=== PATIENT | female | born 1950 | race Caucasian/White ===

== ENCOUNTER 2022-11-29 17:30 | Emergency (ER) | payer OTHER ==
--- OUTSIDE RECORDS SUMMARY | 2022-11-29 17:33 | XMS REPORT | Continuity of Care Document ---
:1950 Author Organization [facility] t Address [address] [place] [address] [place] [id number] Care Team Providers Name Role Phone Unavailable Unavailable Unavailable Problems This patient has no known problems. Allergies, Adverse Reactions, Alerts This patient has no known allergies or adverse reactions. Medications This patient has no known medications. Procedures This patient has no known procedures. Results This patient has no known results.
--- NOTE | 2022-11-29 19:37 | RAD REPORT ---
EXAM DESCRIPTION: RAD - Chest Single View - 11/29/2022 7:31 pm CLINICAL HISTORY: COUGH Chest pain. COMPARISON: Chest Single View dated 08/21/2015; CHEST PA AND LAT 2 VIEW dated 03/19/2009; CHEST PA AN D LAT 2 VIEW dated 10/30/2001 FINDINGS: Portable technique limits examination quality. The lungs are emphysematous but grossly clear. The heart is moderately enlarged. No displaced fractur es. IMPRESSION: Prominent COPD.
[2022-11-29 19:56] LABS: Protime INR 1.06
[2022-11-29 20:07] LABS: Absolute Lymphocytes (CBC) 2.5 K/uL (0.7-4.9); Hematocrit 39.9 % (36.0-45.0); Lymphocytes % 29.8 % (15.3-44.8); MCV 94.5 fL (80-100); Platelets 246 thou/uL (152-406); RBC Red Blood Cell Count 4.22 M/uL (3.86-4.86)
[2022-11-29 20:09] LABS: Albumin 3.4 g/dL (3.4-5.0); Bilirubin Direct 0.2 mg/dL (0-0.2); Bilirubin Indirect, Calculated 0.6 mg/dL (0.2-0.8); Bilirubin Total 0.8 mg/dL (0.2-1.0); Magnesium 2.3 mg/dL (1.6-2.4); Potassium 3.6 mEq/L (3.5-5.1); Protein, Total 6.3 g/dL (6.4-8.2)
[2022-11-29 21:08] LABS: Specific Gravity 1.014 (1.005-1.030); Urine Bacteria 20-50 /HPF (<20); Urine Bilirubin NEGATIVE (Negative); Urine Blood Negative (Negative); Urine Clarity Extremely Turbid (Clear); Urine Color Light-Orange (Yellow); Urine Crystals Unidentified Moderate /HPF (None Seen); Urine Glucose NEGATIVE (Negative); Urine Mucus Slight /HPF (None Seen); Urine Protein NEGATIVE (Negative); Urine Urobilinogen Normal (Normal); Urine WBC Clump Many /HPF (None Seen)
--- NOTE | 2022-11-29 21:20 | RAD REPORT ---
EXAM DESCRIPTION: CT - CTHCSPWOC - 11/29/2022 9:07 pm CLINICAL HISTORY: Trauma, head and neck injury. off balance;Weakness COMPARISON: No comparisons TECHNIQUE: Axial 5 mm thick images of the head were obtained. Axial 2 mm thick images of the cervical spine were obtained with sagittal and coronal reconstruction images generated and reviewed. All CT scans are performed using dose optimization technique as appropriate and may include automated exposure control or mA/KV adjustment according to patient size. FINDINGS: CT HEAD WITHOUT CONTRAST: No acute hemorrhage, hydrocephalus or extra-axial collection is identified.No areas of brain edema or midline shift. The paranasal sinuses and mastoids are clear.The calvarium is intact. CT CERVICAL SPINE WITHOUT CONTRAST: No fracture or subluxation.Mild cervical degenerative changes.No prevertebral soft tissues swelling i s identified. IMPRESSION: No acute intracranial or cervical spine findings.
[2022-11-29] MEDS ORDERED: CEFTRIAXONE 1000 MG/VIAL ONE (21:49)
[2022-11-29] MEDS ORDERED: NA CHLORIDE 0.9% 500 ML ONE (21:49)
[2022-11-30 02:48] VITALS: TEMP 97.4
[2022-11-30 03:00] VITALS: BP 110/74; O2SAT 98
[2022-11-30] MEDS ORDERED: ACETAMINOPHEN 500 MG TAB ONE (10:08)
[2022-11-30] MEDS ORDERED: NA CHLORIDE 0.9% 500 ML ONE (10:08)
--- NOTE | 2022-11-30 16:28 | EKG ---
Test Date: 2022-11-29 Test Time: 20:00:46 Varnish Filterer: ELSA MEASUREMENT RESULTS: Intervals: Rate: 68 AR: 144 QRSD: 82 QT: 394 QTc: 418 Douglass: P: 81 AR: 144 QRS: 64 T: 57 INTERPRETIVE STATEMENTS: Normal sinus rhythm Normal ECG Compared to ECG 08/21/2015 20:12:48 Sinus tachycardia no longer present Electronically Signed On 11-30-22 16:25:55 CDT by Abelino Alva
--- NOTE | 2022-12-01 08:25 | ER ---
Nurse's Notes [facility] Name: Mar Nuno Age: 72 yrs Sex: Female : 1950 Arrival Date: 11/29/2022 Time: 17:30 Bed 12 Private MD: Diagnosis: UTI/ Urinary tract infection, site not specified;Weakness Presentation: 11/29 17:48 Chief complaint: EMS states: Pt hx of COPD, was recently d/c from hospital w/ ph prescriptions for antibiotics, albuterol and dexamethasone, called EMS because she fells shaky. Visible shaking noted, VSS. Coronavirus screen: Vaccine status: Patient reports receiving the 2nd dose of the covid vaccine. Ebola Screen: No symptoms or risks identified at this time. Initial Sepsis Screen: Does the patient meet any 2 criteria? No. Patient's initial sepsis screen is negative. Does the patient have a suspected source of infection? No. Patient's initial sepsis screen is negative. Risk Assessment: Do you want to hurt yourself or someone else? Patient reports no desire to harm self or others. Onset of symptoms. 17:48 Method Of Arrival: EMS: [facility] 17:48 Acuity: [place] 3 ph Triage Assessment: 18:45 General: Appears in no apparent distress. Behavior is calm, cooperative. Pain: Denies ph pain. Neuro: Level of Consciousness is awake, alert, obeys commands, Oriented to person, place, time, situation. Historical: - Allergies: 19:00 Aspirin; ph 19:00 HISTAMINE H2 INHIBITORS; ph - PMHx: 19:00 Asthma; seasonal allergies; ph - Immunization history:: Adult Immunizations up to date. - Social history:: Smoking status: Patient denies any tobacco usage or history of. Screenin:45 [facility] ED Fall Risk Assessment (Adult) History of falling in the last 3 months, kc6 including since admission No falls in past 3 months (0 pts) Confusion or Disorientation No (0 pts) Intoxicated or Sedated No (0 pts) Impaired Gait No (0 pts) Mobility Assist Device Used No (0 pt) Altered Elimination No (0 pt) Score/Fall Risk Level 0 - 2 = Low Risk. Abuse screen: Denies threats or abuse. Denies injuries from another. Nutritional screening: No deficits noted. Tuberculosis screening: No symptoms or risk factors identified. Assessment: 19:43 General: Appears in no apparent distress. comfortable, Behavior is calm, cooperative, sg5 appropriate for age, Reports fatigue for 1-2 days. Pain: Denies pain. Neuro: Level of Consciousness is awake, alert, obeys commands, Oriented to person, place, time, situation, Appropriate for age Reports weakness Shaking. Cardiovascular: Capillary refill < 3 seconds Patient's skin is warm and dry. Respiratory: Airway is patent Trachea midline Respiratory effort is even, unlabored, Respiratory pattern is regular, symmetrical. GI: No signs and/or symptoms were reported involving the gastrointestinal system. Abdomen is flat, non-distended. : No signs and/or symptoms were reported regarding the genitourinary system. EENT: No signs and/or symptoms were reported regarding the EENT system. Derm: No signs and/or symptoms reported regarding the dermatologic system. Skin is intact, Skin temperature is warm. Musculoskeletal: Reports weakness in Generalized. 23:44 Reassessment: No changes from previously documented assessment. Patient and/or family vc1 updated on plan of care and expected duration. Pain level reassessed. Patient is alert, oriented x 3, equal unlabored respirations, skin warm/dry/pink. Vital Signs: 19:00 BP 127 / 85; Pulse 77; Resp 18; Temp 97.4; Pulse Ox 97% on R/A; ph 19:43 BP 138 / 84 Supine; Pulse 69; Resp 16; Pulse Ox 94% on R/A; sg5 20:00 BP 152 / 81 Sitting; Pulse 70; Resp 18; Pulse Ox 97% on R/A; sg5 20:15 BP 159 / 110 Standing; Pulse 88; Resp 18; Pulse Ox 96% on R/A; sg5 21:49 BP 113 / 71; Pulse 62; Resp 16; Pulse Ox 96% on R/A; sg5 23:25 BP 111 / 64; Pulse 63; Resp 16; Pulse Ox 99% on R/A; sg5 11/30 01:08 BP 110 / 74; Pulse 65; Resp 18; Pulse Ox 98% on R/A; sg5 ED Course: 11/29 17:47 Patient arrived in ED. ph 17:51 Triage completed. ph 18:29 Lindsey Mcadams FNP-C is [facility]. kb 18:29 Ninfa Archer is Attending Physician. kb 18:45 Leigha Rutherford, RN is Primary Nurse. kc6 18:45 Patient has correct armband on for positive identification. Bed in low position. Call kc6 light in reach. Side rails up X2. 18:46 Arm band placed on. kc6 19:00 Report given to LETICIA Butt \T\ LETICIA Cerda. kc6 19:33 Chest Single View XRAY In Process Unspecified. EDMS 19:43 Inserted saline lock: 22 gauge in right antecubital area, using aseptic technique. sg5 ,using aseptic technique. difusex Blood collected. 21:09 CT Head C Spine In Process Unspecified. EDMS 11/30 01:09 Provided Education on: Need for IV. Fluid Treatment. Lab Draw. Antibiotic. . sg5 01:09 No provider procedures requiring assistance completed. IV discontinued. sg5 07:06 PHCP role handed off by Lindsey Mcadams FNP-C iw 07:06 Attending Physician role handed off by Ninfa Acrher iw Administered Medications: 11/29 21:47 Drug: NS 0.9% IV 500 ml Route: IV; Rate: bolus; Site: right antecubital; sg5 21:47 Drug: Rocephin IV 1 grams Route: IV; Rate: calculated rate; Site: right antecubital; sg5 Medication: 19:01 VIS not applicable for this client. ph Outcome: 11/30 00:06 Discharge ordered by . kb 01:09 Discharged to home via wheelchair. sg5 01:09 Condition: good 01:09 Discharge instructions given to patient, Instructed on discharge instructions, follow up and referral plans. 01:10 Patient left the ED. sg5 08:25 Patient left the ED. iw Signatures: Dispatcher [employer] EDMS Lindsey Mcadams, KHALIF DIETARY SUPERVISOR-Terese Sun RN RN iw Beverly Rico RN RN ph Mili, LETICIA Butt RN vc1 Leigha Rutherford, RN RN kc6 Zaida Rabago RN RN sg5 Corrections: (The following items were deleted from the chart) 11/29 20:48 19:43 BP 138 / 84; Pulse 69bpm; Resp 16bpm; Pulse Ox 94% RA; sg5 sg5
--- NOTE | 2022-12-01 08:25 | EDPHYS ---
Physician Documentation [facility] Name: Mar Nuno Age: 72 yrs Sex: Female : 1950 Arrival Date: 11/29/2022 Time: 17:30 Bed 12 Private MD: ROSY Physician HPI: 11/30 00:58 This 72 yrs old Female presents to ER via EMS with complaints of Doesn't Feel Right. kb 00:58 The patient presents with generalized weakness. Onset: The symptoms/episode kb began/occurred last week. Context: occurred at home. Modifying factors: The symptoms are alleviated by nothing, the symptoms are aggravated by nothing. Associated signs and symptoms: Pertinent positives: unsteady. Severity of symptoms: At their worst the symptoms were moderate in the emergency department the symptoms are unchanged. Patient's baseline: Neuro: alert and fully oriented, Motor: no deficits, Speech: normal. The patient has not experienced similar symptoms in the past. The patient has been recently seen by a physician:. 00:59 Patient reports she is always unsteady on her feet but over the last week its been kb worse. States she was recently given steroids, antibiotics and albuterol for COPD and believes that the medications are making her more unsteady. States she gets very anxious that she may fall. Reports she gets around using her walker at home.. Historical: - Allergies: 11/29 19:00 Aspirin; ph 19:00 HISTAMINE H2 INHIBITORS; ph - PMHx: 19:00 Asthma; seasonal allergies; ph - Immunization history:: Adult Immunizations up to date. - Social history:: Smoking status: Patient denies any tobacco usage or history of. ROS: 22:35 Constitutional: Negative for fever, chills, and weight loss. kb 22:35 Neuro: Positive for gait disturbance. 22:35 All other systems are negative. Exam: 22:35 Constitutional: This is a well developed, well nourished patient who is awake, alert, kb and in no acute distress. Head/Face: Normocephalic, atraumatic. ENT: Moist Mucous membranes Cardiovascular: Regular rate and rhythm with a normal S1 and S2. No gallops, murmurs, or rubs. No pulse deficits. Respiratory: Respirations even and unlabored. No increased work of breathing. Talking in full sentences Abdomen/GI: Soft, non-tender. No distention Skin: Warm, dry with normal turgor. Normal color. MS/ Extremity: Pulses equal, no cyanosis. Neurovascular intact. Full, normal range of motion. Neuro: Awake and alert, GCS 15, oriented to person, place, time, and situation. Moves all extremities. 11/30 01:20 ECG was reviewed by the Attending Physician. Vital Signs: 11/29 19:00 BP 127 / 85; Pulse 77; Resp 18; Temp 97.4; Pulse Ox 97% on R/A; ph 19:43 BP 138 / 84 Supine; Pulse 69; Resp 16; Pulse Ox 94% on R/A; sg5 20:00 BP 152 / 81 Sitting; Pulse 70; Resp 18; Pulse Ox 97% on R/A; sg5 20:15 BP 159 / 110 Standing; Pulse 88; Resp 18; Pulse Ox 96% on R/A; sg5 21:49 BP 113 / 71; Pulse 62; Resp 16; Pulse Ox 96% on R/A; sg5 23:25 BP 111 / 64; Pulse 63; Resp 16; Pulse Ox 99% on R/A; sg5 11/30 01:08 BP 110 / 74; Pulse 65; Resp 18; Pulse Ox 98% on R/A; sg5 MDM: 11/29 18:29 Patient medically screened. 11/30 01:00 Differential diagnosis: anxiety, UTI, generalized weakness, dehydration. Data reviewed: vital signs, nurses notes. Consideration of Admission/Observation Escalation of care including admission/observation considered. Admission considered for patient feeling unsteady but patient reports she feels much stronger now and believes she will be able to get around using her walker at home. Patient states she just gets anxious and freezes up.. 01:01 Historians other than the Patient: EMS: [facility]. Counseling: I had a detailed discussion with the patient and/or guardian regarding the historical points, exam findings, and any diagnostic results supporting the discharge/admit diagnosis, lab results, radiology results, the need for outpatient follow up, a family practitioner, to return to the emergency department if symptoms worsen or persist or if there are any questions or concerns that arise at home. 11/29 18:46 Order name: Basic Metabolic Panel; Complete Time: 20:10 kb 11/29 18:46 Order name: CBC with Diff; Complete Time: 20:16 kb 11/29 18:46 Order name: Hepatic Function; Complete Time: 20:10 kb 11/29 18:46 Order name: Magnesium; Complete Time: 20:10 kb 11/29 18:46 Order name: Protime (+inr); Complete Time: 20:01 kb 11/29 18:46 Order name: Ptt, Activated; Complete Time: 20:01 kb 11/29 18:46 Order name: Troponin High Sensitivity; Complete Time: 20:10 kb 11/29 18:46 Order name: Urinalysis w/ reflexes; Complete Time: 21:34 kb 11/29 21:30 Order name: Urine Culture EDMS 11/29 18:46 Order name: CT Head C Spine; Complete Time: 21:34 kb 11/29 18:46 Order name: Chest Single View XRAY; Complete Time: 19:45 kb 11/29 18:46 Order name: EKG; Complete Time: 18:46 kb 11/30 07:07 Order name: Diet Regular; Complete Time: 07:07 iw 11/29 18:46 Order name: Cardiac monitoring; Complete Time: 00:06 kb 11/29 18:46 Order name: EKG - Nurse/Tech; Complete Time: 20:05 kb 11/29 18:46 Order name: IV Saline Lock; Complete Time: 19:43 kb 11/29 18:46 Order name: Labs collected and sent; Complete Time: 20:46 kb 11/29 18:46 Order name: NPO; Complete Time: 18:50 kb 11/29 18:46 Order name: O2 Per Protocol; Complete Time: 18:50 kb 11/29 18:46 Order name: O2 Sat Monitoring; Complete Time: 18:50 kb 11/29 18:46 Order name: Orthostatics; Complete Time: 20:46 kb EC:20 Rate is 68 beats/min. Rhythm is regular. QRS [place] is Normal. [place] interval is normal at kb 144 msec. QRS interval is normal at 82 msec. QT interval is normal at 418 msec. Administered Medications: 11/29 21:47 Drug: NS 0.9% IV 500 ml Route: IV; Rate: bolus; Site: right antecubital; sg5 21:47 Drug: Rocephin IV 1 grams Route: IV; Rate: calculated rate; Site: right antecubital; sg5 Disposition Summary: 11/30/22 00:06 Discharge Ordered Location: Home kb Condition: Stable kb Diagnosis - UTI/ Urinary tract infection, site not specified kb - Weakness kb Followup: kb - With: Emergency Department - When: As needed - Reason: Worsening of condition Followup: kb - With: Private Physician - When: 2 - 3 days - Reason: Recheck today's complaints, Continuance of care, Re-evaluation by your physician Discharge Instructions: - Discharge Summary Sheet kb - Urinary Tract Infection, Adult, [id number] kb - Weakness, [id number] kb Forms: - Medication Reconciliation Form kb - Thank You Letter kb - Antibiotic Education kb - Prescription Opioid Use kb - Patient Portal Instructions kb - Leadership Thank You Letter kb Prescriptions: - cefpodoxime 100 mg Oral Tablet - take 1 tablet by ORAL route every 12 hours for 10 days take with food; 20 kb tablet; Refills: 0, Product Selection Permitted Signatures: Dispatcher [employer] EDOH Lindsey Mcadams, KHALIF WEINSTEIN-Beverly Valenzuela, RN RN Zaida Rabago RN RN sg5 Corrections: (The following items were deleted from the chart) 11/30 00:06 11/29 22:35 Misc. Order ordered. kb vc1
== END 2022-11-30 08:25 | disposition home or self-care (01) ==
LOC: ER 17:30
DX: N39.0 Urinary tract infection, site not specified (principal); Z88.6 Allergy status to analgesic agent; Z88.8 Allergy status to other drugs, medicaments and biological substances
CPT/HCPCS: 93005; 87088; 85025; 81001; 87086; 80048; 36415; 83735; 85610; 80076; 85730; 84484; 70450; 72125; 71045; 96374; 99284; J7040 ×2; J0696

== ENCOUNTER 2022-11-30 09:35 | Inpatient (IN) | payer OTHER ==
--- OUTSIDE RECORDS SUMMARY | 2022-11-30 09:37 | XMS REPORT | Continuity of Care Document ---
:1950 Author Organization [facility] t Address [address] [place] [id number] Care Team Providers Name Role Phone Unavailable Unavailable Unavailable Problems This patient has no known problems. Allergies, Adverse Reactions, Alerts This patient has no known allergies or adverse reactions. Medications This patient has no known medications. Procedures This patient has no known procedures. Results This patient has no known results.
[2022-11-30 10:20] LABS: Absolute Lymphocytes (CBC) 1.8 K/uL (0.7-4.9); Hematocrit 40.9 % (36.0-45.0); Lymphocytes % 19.7 % (15.3-44.8); MCV 95.1 fL (80-100); MPV 7.9 fL (7.6-11.3); Platelets 237 thou/uL (152-406)
[2022-11-30 10:48] LABS: Magnesium 2.1 mg/dL (1.6-2.4); Potassium 3.7 mEq/L (3.5-5.1); Troponin High Sensitivity 12.3 pg/mL (<58.9)
--- NOTE | 2022-11-30 13:21 | ER ---
Nurse's Notes [facility] Name: Mar Nuno Age: 72 yrs Sex: Female : 1950 Arrival Date: 11/30/2022 Time: 09:35 Bed 19 Private MD: Diagnosis: Weakness Presentation: 11/30 09:51 Chief complaint: EMS states: they were toned out for a life assist back into pts [place] residence this morning. pt lives alone, and is reported to have multiple cats in the home. pt was here last night and d/c home with a diagnosis of a UTI. pt has continued generalized weakness this morning. APS being contacted per EMS. Coronavirus screen: At this time, the client does not indicate any symptoms associated with coronavirus-19. Ebola Screen: No symptoms or risks identified at this time. Initial Sepsis Screen: Does the patient meet any 2 criteria? No. Patient's initial sepsis screen is negative. Does the patient have a suspected source of infection? No. Patient's initial sepsis screen is negative. Risk Assessment: Do you want to hurt yourself or someone else? Patient reports no desire to harm self or others. Onset of symptoms was November 30, 2022. 09:51 Method Of Arrival: EMS: [facility] kc6 09:51 Acuity: [place] 3 kc6 Triage Assessment: 09:53 General: Appears in no apparent distress. comfortable, Behavior is calm, cooperative, kc6 appropriate for age. Pain: Denies pain. EENT: No signs and/or symptoms were reported regarding the EENT system. Neuro: Level of Consciousness is awake, alert, obeys commands, Oriented to person, place, time, situation, Appropriate for age Reports weakness. Cardiovascular: Capillary refill < 3 seconds. Respiratory: Airway is patent Trachea midline Respiratory effort is even, unlabored, Respiratory pattern is regular, symmetrical. GI: No signs and/or symptoms were reported involving the gastrointestinal system. : No signs and/or symptoms were reported regarding the genitourinary system. Derm: No signs and/or symptoms reported regarding the dermatologic system. Skin is intact, is healthy with good turgor, Skin is pink, warm \T\ dry. Musculoskeletal: No signs and/or symptoms reported regarding the musculoskeletal system. Circulation, motion, and sensation intact. Capillary refill < 3 seconds, Range of motion: intact in all extremities. Historical: - Allergies: 09:53 Aspirin; kc6 09:53 HISTAMINE H2 INHIBITORS; kc6 - PMHx: 09:53 Asthma; seasonal allergies; kc6 10:27 COPD; kc6 - PSHx: 09:53 None; kc6 - Immunization history:: Client reports having NOT received the Covid vaccine. Flu vaccine is not up to date. - Social history:: Smoking status: Patient denies any tobacco usage or history of. Screenin:54 [facility] ED Fall Risk Assessment (Adult) History of falling in the last 3 months, kc6 including since admission Yes- physiologic fall (2 pts) Confusion or Disorientation No (0 pts) Intoxicated or Sedated No (0 pts) Impaired Gait Yes (1 pt) Mobility Assist Device Used Yes (1 pt) Altered Elimination No (0 pt) Score/Fall Risk Level 3 or more points = High Risk. Abuse screen: Denies threats or abuse. Denies injuries from another. Nutritional screening: No deficits noted. Tuberculosis screening: No symptoms or risk factors identified. Assessment: 09:55 Reassessment: pt SPO2 dropped to 85% on RA. Placed pt on 1 l/min via nasal cannula. Pt mb9 SPO2 now 95%. ERP notified. 10:55 Reassessment: Patient appears in no apparent distress at this time. No changes from kc6 previously documented assessment. Patient and/or family updated on plan of care and expected duration. Pain level reassessed. Patient is alert, oriented x 3, equal unlabored respirations, skin warm/dry/pink. 11:55 Reassessment: Patient appears in no apparent distress at this time. No changes from kc6 previously documented assessment. Patient and/or family updated on plan of care and expected duration. Pain level reassessed. Patient is alert, oriented x 3, equal unlabored respirations, skin warm/dry/pink. 12:55 Reassessment: Patient appears in no apparent distress at this time. No changes from kc6 previously documented assessment. Patient and/or family updated on plan of care and expected duration. Pain level reassessed. Patient is alert, oriented x 3, equal unlabored respirations, skin warm/dry/pink. 13:55 Reassessment: Patient appears in no apparent distress at this time. No changes from kc6 previously documented assessment. Patient and/or family updated on plan of care and expected duration. Pain level reassessed. Patient is alert, oriented x 3, equal unlabored respirations, skin warm/dry/pink. 14:55 Reassessment: Patient appears in no apparent distress at this time. No changes from kc6 previously documented assessment. Patient and/or family updated on plan of care and expected duration. Pain level reassessed. Patient is alert, oriented x 3, equal unlabored respirations, skin warm/dry/pink. 15:14 Reassessment: attempted to call patient friend Dragan [phone] to leave him a kc6 message for the pt. no answer at this time, left voicemail. 18:18 Reassessment: attempted to call report to 2nd floor. nurse Lamar is in a pt room and kc6 will call me back in 10min. Vital Signs: 09:51 BP 131 / 69; Pulse 66; Resp 18 S; Temp 97.8(O); Pulse Ox 97% on R/A; Weight 43.09 kg kc6 (R); Height 5 ft. 3 in. (R); Pain 0/10; 11:30 BP 117 / 69; Pulse 60; Resp 16 S; Pulse Ox 100% on 2 lpm NC; kc6 12:25 BP 133 / 71; Pulse 77; Resp 18 S; Pulse Ox 98% on R/A; kc6 13:36 BP 113 / 72; Pulse 65; Resp 16 S; Pulse Ox 95% on R/A; kc6 15:06 Pulse 59; Resp 17 S; Pulse Ox 100% on R/A; kc6 09:51 Body Mass Index 16.83 (43.09 kg, 160.02 cm) kc6 09:51 Pain Scale: Adult kc6 ED Course: 09:45 Patient arrived in ED. kc6 09:47 Fareed Regalado PA is PHCP. cp 09:47 Deacon Mckinney DO is Attending Physician. cp 09:53 Triage completed. kc6 09:53 Arm band placed on. kc6 09:55 Patient has correct armband on for positive identification. Placed in gown. Bed in low kc6 position. Call light in reach. Side rails up X2. 13:19 Skyler Olivarez MD is Hospitalizing Provider. cp 13:36 Urinalysis w/ reflexes Sent. kc6 13:38 CT Chest, Abdomen, Pelvis - W/Contrast In Process Unspecified. EDMS 13:57 Leigha Rutherford, RN is Primary Nurse. kc6 14:43 Bradford cath inserted, using sterile technique, 16 Fr., by ED staff, balloon inflated, to kc6 gravity drainage, clamped. returned rodríguez urine. Patient tolerated well. 18:51 No provider procedures requiring assistance completed. Patient admitted, IV remains in kc place. Administered Medications: 10:00 Drug: Acetaminophen PO 500 mg Route: PO; kc6 11:32 Follow up: Response: No adverse reaction; Pain is decreased kc6 10:14 Drug: NS 0.9% IV 500 ml Route: IV; Rate: 125 ml/hr; Site: left forearm; kc6 15:55 Follow up: Response: No adverse reaction; IV Status: Completed infusion; IV Intake: kc6 500ml Medication: 18:51 VIS not applicable for this client. kc6 Intake: 15:55 IV: 500ml; Total: 500ml. [facility] Outcome: 13:20 Decision to Hospitalize by Provider. cp 18:51 Admitted to Med/surg accompanied by tech, via stretcher, with chart, Report called to caitlin Newton RN 18:51 Condition: stable 18:51 Instructed on the need for admit. 18:51 Patient left the ED. [facility] Signatures: Dispatcher [employer] EDAZ Fareed Regalado PA PA cp Leigha Rutherford, RN RN stella Zoe Carranza RN RN mb9 Corrections: (The following items were deleted from the chart) 10:27 09:51 Chief complaint: EMS states: they were toned out for a life assist back into pts [facility] residence this morning. pt lives alone, and is reported to have multiple cats in the home. pt was here last night and d/c home with a diagnosis with a UTI. pt has continued generalized weakness this morning. APS being contacted per EMS. kc6 10:28 10:27 PMHx: Chronic obstructive lung disease; [place] [id number]
--- NOTE | 2022-11-30 13:21 | EDPHYS ---
Physician Documentation [facility] Name: Mar Nuno Age: 72 yrs Sex: Female : 1950 Arrival Date: 11/30/2022 Time: 09:35 Bed 19 Private MD: ED Physician Deacon Mckinney HPI: 11/30 10:00 This 72 yrs old Female presents to ER via EMS with complaints of General Weakness. cp 10:00 Patient is a 72-year-old female who returns to the emergency department after recent cp discharge this morning for general weakness and urinary tract infection. EMS was called to the patient's home for lift assist and observed that patient lives alone and was unable to get back into her home safely. Patient continues to complain of general weakness and has reported several falls here recently. Patient reports she normally uses a walker to get around in her home and as of late has had difficulty. Historical: - Allergies: 09:53 Aspirin; kc6 09:53 HISTAMINE H2 INHIBITORS; kc6 - PMHx: 09:53 Asthma; seasonal allergies; kc6 10:27 COPD; kc6 - PSHx: 09:53 None; kc6 - Immunization history:: Client reports having NOT received the Covid vaccine. Flu vaccine is not up to date. - Social history:: Smoking status: Patient denies any tobacco usage or history of. ROS: 10:05 Constitutional: Positive for poor PO intake, Negative for fever. cp 10:05 Eyes: Negative for injury, pain, redness, and discharge. cp 10:05 ENT: Negative for drainage from ear(s), ear pain, sore throat, difficulty swallowing, difficulty handling secretions. 10:05 Cardiovascular: Negative for chest pain. 10:05 Respiratory: Negative for cough, shortness of breath, wheezing. 10:05 Abdomen/GI: Negative for abdominal pain, vomiting, diarrhea, constipation. 10:05 Neuro: Positive for weakness, Negative for altered mental status, dizziness, headache, loss of consciousness, syncope. 10:05 All other systems are negative. Exam: 10:10 Constitutional: The patient appears in no acute distress, alert, awake, cp non-diaphoretic, non-toxic, well developed, frail. 10:10 Head/Face: Normocephalic, atraumatic. cp 10:10 Eyes: Periorbital structures: appear normal, Pupils: equal, round, and reactive to light and accomodation, Extraocular movements: intact throughout, Sclera: no appreciated abnormality, Lids and lashes: appear normal, bilaterally. 10:10 ENT: External ear(s): are unremarkable, Nose: is normal, Mouth: Lips: moist, Oral mucosa: pink and intact, moist, Posterior pharynx: Airway: no evidence of obstruction, patent, Voice: is normal. 10:10 Neck: ROM/movement: limited range of motion, that is mild, in any direction. 10:10 Chest/axilla: Inspection: normal, Palpation: is normal, no crepitus, no tenderness. 10:10 Cardiovascular: Rate: normal, Rhythm: regular, Edema: is not appreciated, JVD: is not appreciated. 10:10 Respiratory: the patient does not display signs of respiratory distress, Respirations: normal, no use of accessory muscles, no retractions, labored breathing, is not present, Breath sounds: are clear throughout, no decreased breath sounds, no stridor, no wheezing. 10:10 Abdomen/GI: Inspection: abdomen appears normal, Bowel sounds: active, all quadrants, Palpation: abdomen is soft and non-tender, in all quadrants. 10:10 Back: CVA tenderness, is absent. 10:10 Skin: cellulitis, is not appreciated, no rash present. 10:10 Neuro: Orientation: to person, place \T\ time. Mentation: able to follow commands, Motor: moves all fours, general weakness w/o focal deficit, Sensation: is normal. 10:12 ECG was reviewed by the Attending Physician. cp Vital Signs: 09:51 BP 131 / 69; Pulse 66; Resp 18 S; Temp 97.8(O); Pulse Ox 97% on R/A; Weight 43.09 kg kc6 (R); Height 5 ft. 3 in. (R); Pain 0/10; 11:30 BP 117 / 69; Pulse 60; Resp 16 S; Pulse Ox 100% on 2 lpm NC; kc6 12:25 BP 133 / 71; Pulse 77; Resp 18 S; Pulse Ox 98% on R/A; kc6 13:36 BP 113 / 72; Pulse 65; Resp 16 S; Pulse Ox 95% on R/A; kc6 15:06 Pulse 59; Resp 17 S; Pulse Ox 100% on R/A; kc6 09:51 Body Mass Index 16.83 (43.09 kg, 160.02 cm) 6 09:51 Pain Scale: Adult kc6 MDM: 09:48 Patient medically screened. cp 10:00 Differential diagnosis: viral Infection, bacterial infection, bronchitis, pneumonia cp UTI, sepsis. 13:25 Data reviewed: vital signs, nurses notes, lab test result(s), EKG, radiologic studies, cp plain films. 13:25 Management of patient was discussed with the following: Primary Care Provider: DR Sher shultz who requests cath urine and CT of chest/abdomen/pelvis. Admit to his services after discussion. Counseling: I had a detailed discussion with the patient and/or guardian regarding the historical points, exam findings, and any diagnostic results supporting the discharge/admit diagnosis, lab results, radiology results, the need for further work-up and treatment in the hospital. Response to treatment: the patient's symptoms have mildly improved after treatment. 11/30 09:49 Order name: Basic Metabolic Panel; Complete Time: 10:49 cp 11/30 09:49 Order name: CBC with Diff; Complete Time: 10:49 cp 11/30 09:49 Order name: Magnesium; Complete Time: 10:49 cp 11/30 09:49 Order name: Troponin HS; Complete Time: 10:49 cp 11/30 13:19 Order name: Urinalysis w/ reflexes; Complete Time: 16:48 cp 11/30 17:54 Order name: Basic Metabolic Panel [facility] 11/30 17:54 Order name: Basic Metabolic Panel [facility] 11/30 17:54 Order name: CBC with Automated Diff [facility] 11/30 17:54 Order name: CBC with Automated Diff [facility] 11/30 13:19 Order name: CT Chest, Abdomen, Pelvis - W/Contrast; Complete Time: 16:48 cp 11/30 09:45 Order name: Social Service Consult [facility] 11/30 09:49 Order name: EKG; Complete Time: 09:50 cp 11/30 10:15 Order name: Diet Regular; Complete Time: 10:15 [facility] 11/30 10:57 Order name: Physical Therapy Consult [facility] 11/30 15:54 Order name: Diet Regular; Complete Time: 15:54 [facility] 11/30 09:49 Order name: Cardiac monitoring; Complete Time: 10:11 cp 11/30 09:49 Order name: EKG - Nurse/Tech; Complete Time: 10:10 cp 11/30 09:49 Order name: IV Saline Lock; Complete Time: 10:11 cp 11/30 09:49 Order name: Labs collected and sent; Complete Time: 10:11 cp 11/30 09:49 Order name: O2 Per Protocol; Complete Time: 09:55 cp 11/30 09:49 Order name: O2 Sat Monitoring; Complete Time: 09:55 cp 11/30 13:19 Order name: Cath: per DR Olivarez; Complete Time: 14:42 cp EC:12 Rate is 64 beats/min. Rhythm is regular. [place] interval is normal. QRS interval is normal. cp QT interval is normal. T waves are Inverted in lead aVR. Interpreted by me. Reviewed by me. Administered Medications: 10:00 Drug: Acetaminophen PO 500 mg Route: PO; kc6 11:32 Follow up: Response: No adverse reaction; Pain is decreased kc6 10:14 Drug: NS 0.9% IV 500 ml Route: IV; Rate: 125 ml/hr; Site: left forearm; kc6 15:55 Follow up: Response: No adverse reaction; IV Status: Completed infusion; IV Intake: kc6 500ml Disposition: 12/01 11:28 Co-signature as Attending Physician, Deacon CHRISTIE was immediately available on-site ms3 in the Emergency Department for consultation in the care of the patient. Disposition Summary: 11/30/22 13:20 Hospitalization Ordered Hospitalization Status: Inpatient Admission cp Provider: Skyler Olivarez cp [facility] cp Condition: Stable cp Problem: new cp Symptoms: have improved cp Bed/Room Type: Standard cp Room Assignment: 224(11/30/22 18:03) bd Diagnosis - Weakness cp Forms: - Medication Reconciliation Form cp - SBAR form cp - Leadership Thank You Letter cp Signatures: Dispatcher [employer] Yolanda Smith Corey, PA PA cp Sims, Marcus, DO DO ms3 Leigha Rutherford RN RN kc6 Corrections: (The following items were deleted from the chart) 11/30 10:28 10:27 PMHx: Chronic obstructive lung disease; kc6 kc6 18:03 13:20 cp bd
--- NOTE | 2022-11-30 13:46 | RAD REPORT ---
EXAM DESCRIPTION: CT - Chest Abdomen Pelvis W Cont - 11/30/2022 1:36 pm CLINICAL HISTORY: Chest and abdomen pain. wt loss COMPARISON: Head C Spine Mpr Wo Con dated 11/29/2022 TECHNIQUE: Approximately 100 mL nonionic IV contrast was administered to the patient. All CT scans are performed using dose optimization technique as appropriate and may include automated exposure control or mA/KV adjustment according to patient size. FINDINGS: The lungs are mildly emphysematous with linear atelectasis in the left lung base.No pleura l or pericardial effusion.No intrathoracic adenopathy.Mildly distended esophagus filled with food mat erial. The liver, spleen, pancreas, adrenal glands are within normal limits. Small calcification inferior po le right kidney compatible with nonobstructing renal calculus. Left kidney contains a benign cyst. No bowel obstruction, free air, free fluid or abscess. There is a large amount of stool in the colon. Appendix is not well visualized. No pathologic lymphadenopathy in the abdomen or pelvis. Mild lumbar degenerative changes. IMPRESSION: No acute abnormality is discerned.
[2022-11-30 13:52] LABS: Specific Gravity 1.014 (1.005-1.030); Urine Bacteria None Seen /HPF (<20); Urine Bilirubin NEGATIVE (Negative); Urine Blood Negative (Negative); Urine Clarity Extremely Turbid (Clear); Urine Color Light-Orange (Yellow); Urine Glucose NEGATIVE (Negative); Urine Protein TRACE (Negative); Urine RBC None Seen /HPF (None Seen); Urine Urobilinogen Normal (Normal); Urine pH 7.5 (5.0-7.0)
--- NOTE | 2022-11-30 16:26 | EKG ---
Test Date: 2022-11-30 Test Time: 10:06:51 Commercial Baking Teacher: RAMAN MEASUREMENT RESULTS: Intervals: Rate: 64 MI: 142 QRSD: 82 QT: 410 QTc: 422 [place]: P: 70 MI: 142 QRS: 65 T: 46 INTERPRETIVE STATEMENTS: Normal sinus rhythm with sinus arrhythmia Normal ECG Compared to ECG 11/29/2022 20:00:46 No significant changes Electronically Signed On 11-30-22 16:25:05 CDT by Abelino Alva
[2022-11-30] MEDS ORDERED: ONDANSETRON 4 MG/2 ML VIAL IV PRN (17:51)
[2022-11-30] MEDS: NA CHLORIDE 0.9% 1,000 ML IV SCH (18:47)
[2022-11-30 19:42] VITALS: BMI 16.8
--- NOTE | 2022-11-30 22:24 | P.HP ---
Patient History Date of Service: 11/30/22 Reason for admission: WEAKNESS, NOT ABLE TO WALK History of Present Illness: ETHAN IS A PATIENT WITH COPD WHO TAKES CARE OF 21 CATS AND USES HER MONEY TO FEED THEM. SHE HAS LOST A LOT OF WEIGHT AND WHEN I ASKED SHE SAYS MONEY IS STRAINED AND SHE IS LOOKING FOR A JOB. SHE HAS BEEN TOLD THAT SHE NEEDS TO GET RIDS OF CATS SO SHE CAN AFFORD FOOD AND EXPENSES FOR HERSELF. SHE LOVES CATS TOO MUCH TO DO SO. SHE SAYS WITH ACUTE ILLNESS SHE GETS WEAK AND SHE CAN'T WALK. THIS HAS HAPPENED BEFORE. SHE CAN'T GET OUT OF BED AND WALK ANY LONGER. Allergies aspirin Allergy (Mild, Verified 08/21/15 22:34) Hives Histamine H2 Inhibitors Allergy (Mild, Verified 08/21/15 22:34) Hives Home medications list reviewed: Yes Home Medications: Montelukast Sodium [Singulair] 10 mg PO DAILY 08/21/15 Budesonide/Glycopyr/Formoterol [Breztri Aerosphere Inhaler] 2 aero IN BID 11/30/22 - Past Medical/Surgical History Has patient received pneumonia vaccine in the past: No Diabetic: No -: Pneumonia -: Asthma -: Hysterectomy - Social History Smoking Status: Never smoker Alcohol use: Yes CD- Drugs: No Caffeine use: Yes Review of Systems 10-point ROS is otherwise unremarkable General: Weakness Physical Examination - Vital Signs Temperature: 97.6 F Blood Pressure: 106/64 Pulse: 82 Respirations: 17 Pulse Ox (%): 95 - Physical Exam General: Oriented x3, Cachectic, Mild distress HEENT: Atraumatic, PERRLA, Mucous membr. moist/pink, EOMI, Sclerae nonicteric Neck: Supple, 2+ carotid pulse no bruit, No LAD, Without JVD or thyroid abnormality Respiratory: Clear to auscultation bilaterally, Normal air movement Cardiovascular: Regular rate/rhythm, Normal S1 S2 Gastrointestinal: Normal bowel sounds, No tenderness Musculoskeletal: No tenderness Integumentary: No rashes Neurological: Abnormal strength (3-4/5 IN LEGS. FLACCID.) Lymphatics: No axilla or inguinal lymphadenopathy - Studies Laboratory Data (last 24 hrs) 11/30/22 11/30/22 10:06 10:06 WBC 9.40 Hgb 13.5 Hct 40.9 Plt Count 237 Sodium 143 Potassium 3.7 BUN 12 Creatinine 0.60 Glucose 97 Magnesium 2.1 Assessment and Plan - Problems (Diagnosis) (1) General weakness Current Visit: Yes Status: Acute Plan: CHECK B12 TSH SED RATE, CRP RULE OUT PMR. CONSULT DR. SHAVER RULE OUT GBS LIKE SYNDROME ORDER PT. ST CATH URINE IS OKAY AGAIN WHEREAS LASTNIGHT URNIE SAMPLE WAS NOT COLLECTED PROPERLY. - Advance Directives Does patient have a Living Will: No Does patient have a Durable POA for Healthcare: No
[2022-11-30 23:53] LABS: C-Reactive Protein < 2.90 mg/L (<3.00); Ferritin 63.2 ng/mL (8-388)
[2022-12-01 03:42] LABS: Absolute Lymphocytes (CBC) 2.1 K/uL (0.7-4.9); Hematocrit 36.3 % (36.0-45.0); Lymphocytes % 25.4 % (15.3-44.8); MCV 94.7 fL (80-100); MPV 8.4 fL (7.6-11.3); Platelets 213 thou/uL (152-406); RBC Red Blood Cell Count 3.83 M/uL (3.86-4.86)
[2022-12-01 03:53] LABS: Potassium 3.9 mEq/L (3.5-5.1)
[2022-12-01] MEDS: MONTELUKAST 10 MG TAB PO SCH ×2 (07:50→07:52)
[2022-12-01] MEDS: NA CHLORIDE 0.9% 1,000 ML IV SCH ×2 (07:50→20:15)
[2022-12-01] MEDS: BUDESONIDE IH SCH ×2 (07:52→20:15)
[2022-12-01] MEDS: GLYCOPYR IH SCH ×2 (07:52→20:15)
[2022-12-01] MEDS: FORMOTEROL IH SCH ×2 (07:52→20:15)
[2022-12-01] MEDS: ENSURE ENLIVE 237 ML CAN PO SCH ×2 (14:03→20:16)
--- NOTE | 2022-12-01 17:44 | P.PN ---
Subjective Date of Service: 12/01/22 Chief Complaint: WEAKNESS, NOT ABLE TO WALK Subjective: Improving DID NOT DO MUCH PT YET. SHE MAY GO TO [place] BUT THERE IS NO QUALIFYING DIAGNOSIS. Physical Examination - Vital Signs Temperature: 99.5 F Blood Pressure: 127/67 Pulse: 79 Respirations: 15 Pulse Ox (%): 95 - Physical Exam General: Oriented x3, Mild distress HEENT: Atraumatic, PERRLA, EOMI Neck: Supple, JVD not distended Respiratory: Clear to auscultation bilaterally, Normal air movement Cardiovascular: Regular rate/rhythm, Normal S1 S2 Gastrointestinal: Normal bowel sounds, No tenderness Musculoskeletal: No tenderness Integumentary: No rashes Neurological: Normal speech, Normal tone, Normal affect Lymphatics: No axilla or inguinal lymphadenopathy - Studies Medications List Reviewed: Yes Assessment And Plan - Current Problems (Diagnosis) (1) General weakness Current Visit: Yes Status: Acute Plan: CHECK B12 TSH SED RATE, CRP RULE OUT PMR. ALL ABOVE NEG. SEE NEURO UA NEG DONE PROPERLY. FIRST SAMPLE WAS FROM [facility]ED[facility]AN AND FALSE POSITIVE. WILL FU WITH ANGIE. HER WEAKNESS IS FROM NOT EATING PROPERLY. SHE FEEDS 21 CATS AND ALWAYS COMPLAINS THAT SHE DOES NOT HAVE MONEY FOR HER OWN FOOD.
[2022-12-02] MEDS: BUDESONIDE IH SCH ×2 (08:24→21:00)
[2022-12-02] MEDS: ENSURE ENLIVE 237 ML CAN PO SCH ×3 (08:24→22:59)
[2022-12-02] MEDS: FORMOTEROL IH SCH ×2 (08:24→21:00)
[2022-12-02] MEDS: GLYCOPYR IH SCH ×2 (08:24→21:00)
[2022-12-02] MEDS: NA CHLORIDE 0.9% 1,000 ML IV SCH (10:16)
--- NOTE | 2022-12-02 11:53 | P.PN ---
Subjective Date of Service: 12/02/22 Chief Complaint: GEN WEAKNESS Subjective: Improving DID NOT DO MUCH PT YET. [facility] BUT [facility] IS NO QUALIFYING DIAGNOSIS. SHE DID NOT DO PT YESTERDAY. SHE WALKED ABOUT 170 FEET DAY BEFORE SHE HAS CUMMINGS FROM ER AND I WILL HAVE IT REMOVED. SHE GOT RID OF HER 21 CATS AND SHE WILL NOW HAVE FOOD TO EAT HOUSE IS BEING CLEANED UP AND SHE IS STABLE TO GO HOME BUT SHE WANTS TO WAIT ONE MORE DAY HERE. Review of Systems 10-point ROS is otherwise unremarkable General: Weakness Physical Examination - Vital Signs Temperature: 99.0 F Blood Pressure: 120/79 Pulse: 93 Respirations: 18 Pulse Ox (%): 98 - Physical Exam General: Alert, In no apparent distress HEENT: Atraumatic, PERRLA, EOMI Neck: Supple, JVD not distended Respiratory: Clear to auscultation bilaterally, Normal air movement Cardiovascular: Regular rate/rhythm, Normal S1 S2 Gastrointestinal: Normal bowel sounds, No tenderness Musculoskeletal: No tenderness Integumentary: No rashes Neurological: Normal speech, Normal tone, Normal affect Lymphatics: No axilla or inguinal lymphadenopathy - Studies Medications List Reviewed: Yes Assessment And Plan - Current Problems (Diagnosis) (1) General weakness Current Visit: Yes Status: Acute Plan: CHECK B12 TSH SED RATE, CRP RULE OUT PMR. ALL ABOVE NEG. SHE HAS GOT RID OF CATS NOW AND THAT IS GOOD FOR HER HEALTH. SHE LISTENED TO WHAT I ADVISED SHE ALWAYS COMPLAINED OF NOT HAVING MONEY FOR FOOD BUT SHE WAS SPENDING ON CATS. SHE WILL GO TO FRIEND FOR A DAY AND THEN TO HER HOME WITH HOME HEALTH.
[2022-12-02 12:21] LABS: Specific Gravity 1.011 (1.005-1.030); Urine Bacteria None Seen /HPF (<20); Urine Bilirubin NEGATIVE (Negative); Urine Blood Trace (Negative); Urine Clarity Clear (Clear); Urine Color Light-Yellow (Yellow); Urine Glucose NEGATIVE (Negative); Urine Mucus Slight /HPF (None Seen); Urine Protein NEGATIVE (Negative); Urine Urobilinogen Normal (Normal); Urine pH 6.5 (5.0-7.0)
[2022-12-02] MEDS ORDERED: NA CHLORIDE 0.9% 1,000 ML IV SCH (21:24)
[2022-12-03] MEDS: MONTELUKAST 10 MG TAB PO SCH (08:18)
[2022-12-03] MEDS: GLYCOPYR IH SCH (08:20)
[2022-12-03] MEDS: FORMOTEROL IH SCH (08:20)
[2022-12-03] MEDS: BUDESONIDE IH SCH (08:20)
[2022-12-03] MEDS: ENSURE ENLIVE 237 ML CAN PO SCH (08:20)
[2022-12-03 08:30] VITALS: O2SAT 96
[2022-12-03 08:55] VITALS: BP 102/58; TEMP 98.3
--- NOTE | 2022-12-03 21:38 | P.DS ---
Admission Date: 11/30/22 Discharge Date: 12/03/22 Disposition: DC HOME/HOME HEALTH CARE Discharge Condition: FAIR Reason for Admission: GEN WEAKNESS - Problems (1) General weakness Status: Acute Brief History of Present Illness: ETHAN IS A PATIENT WITH COPD WHO TAKES CARE OF 21 CATS AND USES HER MONEY TO FEED THEM. SHE HAS LOST A LOT OF WEIGHT AND WHEN I ASKED SHE SAYS MONEY IS STRAINED AND SHE IS LOOKING FOR A JOB. SHE HAS BEEN TOLD THAT SHE NEEDS TO GET RIDS OF CATS SO SHE CAN AFFORD FOOD AND EXPENSES FOR HERSELF. SHE LOVES CATS TOO MUCH TO DO SO. SHE SAYS WITH ACUTE ILLNESS SHE GETS WEAK AND SHE CAN'T WALK. THIS HAS HAPPENED BEFORE. SHE CAN'T GET OUT OF BED AND WALK ANY LONGER. Hospital Course: ANGELA COMES IN WEAK, NOT ABLE TO GET OUT OF BED. SHE HAS LOST ABOUT 30 LBS LATELY. SHE HAD 21 CATS AND SHE HAD NO MONEY LEFTOVER AFTER TAKING CARE OF THEM. THIS IS HOW SHE LOST WEIGHT. SHE IS CACHECTIC BUT AFTER FEEDING FOR COUPLE OF DAYS SHE IS ABLE TO WALK AROUND NURSES STATION WITH WALKER. SHE HAS NO UTI. SHE IS STABLE FOR DC WITH PT AND HH. Vital Signs/Physical Exam: Temp Pulse Resp BP Pulse Ox 98.3 F 72 16 102/58 L 97 12/03/22 08:00 12/03/22 08:00 12/03/22 08:00 12/03/22 08:00 12/03/22 08:00 Laboratory Data at Discharge: WBC 8.30 thou/uL (4.3-10.9) 12/01/22 02:12 Hgb 12.4 g/dL (12.0-15.0) D 12/01/22 02:12 Hct 36.3 % (36.0-45.0) 12/01/22 02:12 Plt Count 213 thou/uL (152-406) 12/01/22 02:12 Sodium 143 mEq/L (136-145) 12/01/22 02:12 Potassium 3.9 mEq/L (3.5-5.1) 12/01/22 02:12 BUN 14 mg/dL (7-18) 12/01/22 02:12 Creatinine 0.83 mg/dL (0.55-1.02) 12/01/22 02:12 Glucose 97 mg/dL (74-106) 12/01/22 02:12 Magnesium 2.1 mg/dL (1.6-2.4) 11/30/22 10:06 Home Medications: Montelukast Sodium [Singulair] 10 mg PO DAILY 08/21/15 Budesonide/Glycopyr/Formoterol [Breztri Aerosphere Inhaler] 2 aero IN BID 11/30/22 Ensure Enlive 237 ml PO TID can 12/01/22 Followup: Skyler Olivarez MD [Primary Care Provider] -
[2022-12-04 19:50] LABS: Immunoglobulin A 98 mg/dL (70-320); Tissue Transglutaminase IgA Ab <1.0 U/mL (<15.0)
== END 2022-12-03 12:57 | disposition home health service (06) | DRG 947 ==
LOC: ER 09:35 → ERHOLD 17:50 → 2ND 18:15
PROVIDERS: ADMIT Internal Medicine; ATTEND Internal Medicine
DX: R53.1 Weakness (principal); E43 Unspecified severe protein-calorie malnutrition; Z68.1 Body mass index [BMI] 19.9 or less, adult; R64 Cachexia; J30.2 Other seasonal allergic rhinitis; J44.9 Chronic obstructive pulmonary disease, unspecified; Z60.2 Problems related to living alone; Z88.6 Allergy status to analgesic agent; Z88.8 Allergy status to other drugs, medicaments and biological substances; Z28.310 Unvaccinated for COVID-19; Z79.899 Other long term (current) drug therapy; Z90.710 Acquired absence of both cervix and uterus
CPT/HCPCS: 36415; 51702; 70450; 71045; 71260; 72125; 74177; 80048; 80076; 81001; 82607; 82728; 82784; 83735; 84484; 85025; 85610; 85730; 86140; 86364; 87086; 87088; 93005; 96360; 96361; 96374; 97110; 97116; 97162; 97163; 97530; 99284; 99285; J0696; J7030; J7040; Q9967

== ENCOUNTER 2024-06-20 04:50 | Inpatient (IN) | payer OTHER ==
--- OUTSIDE RECORDS SUMMARY | 2024-06-20 04:53 | XMS REPORT | Continuity of Care Document ---
Author Name Unknown Address [address] [place] [address] [facility] Address [address] [place] [address] [address] [place] [address] Care Team Providers Care Foreign Banknote Teller Name Role Phone Unavailable Unavailable Unavailable
[2024-06-20] MEDS ORDERED: IPRATROPIUM BROM 0.5MG/2.5ML ONE ×2 (05:22→06:28)
[2024-06-20] MEDS ORDERED: CEFTRIAXONE 1000 MG/VIAL ONE (05:22)
[2024-06-20] MEDS ORDERED: ALBUTEROL 2.5 MG/3 ML NEB SOL ONE ×3 (05:22→13:33)
[2024-06-20] MEDS ORDERED: NA CHLORIDE 0.9% 50 ML ONE (05:23)
[2024-06-20] MEDS ORDERED: AZITHROMYCIN 500 MG INJ IVPB ONE (05:23)
[2024-06-20] MEDS ORDERED: METHYLPREDNISOLONE 125 MG INJ ONE (05:23)
[2024-06-20] MEDS ORDERED: NA CHLORIDE 0.9% 250 ML ONE (05:23)
[2024-06-20 05:37] LABS: Absolute Basophils 0.1 K/uL (0-0.5); Absolute Eosinophils 0.5 K/uL (0-0.5); Absolute Lymphocytes (CBC) 1.3 K/uL (0.7-4.9); Absolute Monocytes 0.6 K/uL (0.1-1.3); Absolute Neutrophil 6.2 K/uL (1.8-8.0); Basophils % 0.7 % (0-1.3); Eosinophils % 5.6 % (0-4.4); Hemoglobin 14.9 g/dL (12.0-15.0); Lymphocytes % 15.2 % (15.3-44.8); MCH 31.2 pg (27.0-35.0); MCHC 33.9 g/dL (32.0-36.0); MPV 8.7 fL (7.6-11.3); Neutrophils % 71.5 % (41.7-73.7); Platelets 258 thou/uL (152-406); RBC Red Blood Cell Count 4.78 M/uL (3.86-4.86); Red Cell Distribution Width 13.6 % (12.1-15.2)
[2024-06-20 05:45] LABS: D-Dimer 0.284 FEUug/mL (0-0.500); PT Prothrombin Time 12.2 SECONDS (10-13.0); PTT, Activated Partial Thromb 30.1 SECONDS (27.2-37.4); Protime INR 1.07
[2024-06-20 05:52] LABS: Albumin 3.9 g/dL (3.4-5.0); Albumin/Globulin Ratio 1.2 (1.1-1.8); Anion Gap 8.7 mEq/L (5.0-15.0); Bilirubin Direct 0.2 mg/dL (0-0.2); Bilirubin Indirect, Calculated 0.4 mg/dL (0.2-0.8); Bilirubin Total 0.6 mg/dL (0.2-1.0); Globulin 3.3 g/dL (2.3-3.5); Magnesium 1.9 mg/dL (1.6-2.4); Potassium 3.7 mEq/L (3.5-5.1); Protein, Total 7.2 g/dL (6.4-8.2); Troponin High Sensitivity 14.5 pg/mL (<58.9)
[2024-06-20] MEDS ORDERED: ACETAMINOPHEN 500 MG TAB ONE (06:34)
--- NOTE | 2024-06-20 07:32 | EDPHYS ---
Physician Documentation [facility] Name: Mar Nuno Age: 73 yrs Sex: Female : 1950 Arrival Date: 06/20/2024 Time: 04:50 Bed 8 Private MD: ED Physician Curtis Lara HPI: 06/20 04:52 This 73 yrs old Female presents to ER via Unassigned with complaints of sp4 Shortness Of Breath. 07:24 73-year-old female with history of COPD presents with EMS with acute worsening dyspnea sp4 associated with wheezing. EMS reported hypoxemia en route.. 07:24 Patient's medications include montelukast, budesonide formoterol, and Ensure.. sp4 Historical: - Allergies: 04:56 Aspirin; al5 04:56 HISTAMINE H2 INHIBITORS; al5 - PMHx: 04:56 Asthma; COPD; seasonal allergies; al5 - PSHx: 04:56 None; al5 - Immunization history:: Adult Immunizations up to date, Flu vaccine is not up to date. It has been more than one year since last vaccine. - Infectious Disease History:: Denies. - Social history:: Smoking status: Patient denies any tobacco usage or history of. - Family history:: not pertinent. ROS: 07:24 Constitutional: Negative for fever, chills, and weight loss, positive dyspnea and sp4 wheezing, positive generalized weakness 07:24 All other systems are negative, Exam: 07:24 Constitutional: Frail elderly female, mild respiratory distress, on high flow nasal sp4 cannula, signs of physical debility Head/Face: Normocephalic, atraumatic. Eyes: Pupils equal round and reactive to light, extra-ocular motions intact. Lids and lashes normal. Conjunctiva and sclera are not injected. Cornea within normal limits. Periorbital areas with no swelling, redness, or edema. ENT: Nares patent. No nasal discharge, no septal abnormalities noted. Tympanic membranes are normal and external auditory canals are clear. Oropharynx with no redness, swelling, or masses, exudates, or evidence of obstruction, uvula midline. Mucous membranes moist. Neck: Trachea midline, no thyromegaly or masses palpated, and no cervical lymphadenopathy. Supple, full range of motion without nuchal rigidity, or vertebral point tenderness. Chest/axilla: Normal chest wall appearance and motion. Nontender with no deformity. No lesions are appreciated. Cardiovascular: Regular rate and rhythm with a normal S1 and S2. No gallops, murmurs, or rubs. Normal PMI, no JVD. No pulse deficits. Respiratory: Lungs have equal breath sounds bilaterally, positive dyspnea positive tachypnea positive diffuse expiratory wheezing Abdomen/GI: Soft, with normal bowel sounds. No distension or tympany. No guarding or rebound. No evidence of tenderness throughout. Back: No spinal tenderness. No costovertebral tenderness. Skin: Warm, dry with normal turgor. Normal color with no rashes, no lesions, and no evidence of cellulitis. MS/ Extremity: Pulses equal, no cyanosis. Neurovascular intact. Full, normal range of motion. Neuro: Awake and alert, GCS 15, oriented to person, place, time, and situation. Cranial nerves II-XII grossly intact. Motor strength 5/5 in all extremities. Sensory grossly intact. Psych: Awake, alert, with orientation to person, place and time. Behavior, mood, and affect are within normal limits 07:24 ECG was reviewed by the Attending Physician. Sinus rhythm with sinus arrhythmia rate 115 Vital Signs: 04:52 BP 173 / 91; Pulse 102; Resp 26; Temp 97.5; Pulse Ox 96% on 4 lpm NC; Weight 58.97 kg; al5 Height 5 ft. 3 in. ; 05:15 BP 153 / 87; Pulse 92; Resp 22; Pulse Ox 97% on 3 lpm NC; al5 05:30 BP 135 / 67; Pulse 98; Resp 22; Pulse Ox 97% on 3 lpm NC; al5 06:00 BP 128 / 89; Pulse 90; Resp 21; Pulse Ox 99% on 2 lpm NC; al5 06:30 BP 136 / 81; Pulse 101; Resp 19; Pulse Ox 99% on 10 lpm Nebulizer Mask; al5 04:52 Body Mass Index 23.03 (58.97 kg, 160.02 cm) al5 [place] Coma Score: 07:24 Eye Response: spontaneous(4). Motor Response: obeys commands(6). Verbal Response: sp4 oriented(5). Total: 15. MDM: 05:34 Medical Screening Exam initiated sp4 07:29 Differential diagnosis: Anemia Anxiety Reaction asthma, Bronchitis CHF exacerbation, sp4 Chronic Obstructive Pulmonary Disease pneumonia. Antibiotic administration: Rocephin IV and Zithromax IV ordered . Data reviewed: vital signs, nurses notes, EMS record, old medical records, lab test result(s), EKG, radiologic studies, plain films. ED course: EXAM: XR Chest, 1 View CLINICAL HISTORY: The patient is 73 years old and is Female; Chest pain. TECHNIQUE: Single view of the chest. COMPARISON: No relevant prior studies available. FINDINGS: Lungs: Mild centrilobular emphysema. No consolidation or fluid overload. Pleural space: Unremarkable. No pneumothorax. Heart: Borderline cardiac enlargement. Mediastinum: Unremarkable. Bones/joints: No acute fracture. Upper abdomen: No free air in the visualized upper abdomen. IMPRESSION: Mild centrilobular emphysema. No consolidation or fluid overload. . 06/20 04:57 Order name: BMP; Complete Time: 07:12 sp4 06/20 04:57 Order name: Blood Culture Adult (2) 4 06/20 04:57 Order name: CBC with Diff; Complete Time: 07:12 sp4 06/20 04:57 Order name: CPK; Complete Time: 07:12 sp4 06/20 04:57 Order name: D-Dimer; Complete Time: 07:12 sp4 06/20 04:57 Order name: Hepatic Function; Complete Time: 07:12 sp4 06/20 04:57 Order name: Lipase; Complete Time: 07:12 sp4 06/20 04:57 Order name: Magnesium; Complete Time: 07:12 sp4 06/20 04:57 Order name: NT PRO-BNP; Complete Time: 07:12 sp4 06/20 04:57 Order name: PT-INR; Complete Time: 07:12 sp4 06/20 04:57 Order name: Ptt, Activated; Complete Time: 07:12 sp4 06/20 04:57 Order name: Troponin HS; Complete Time: 07:12 sp4 06/20 04:57 Order name: ABG sp4 06/20 04:57 Order name: Urinalysis W/Microscopic sp4 06/20 05:14 Order name: Lactate w/ 2H reflex if indic.; Complete Time: 07:12 vc1 06/20 05:14 Order name: Glucose, Ancillary Testing; Complete Time: 07:12 EDMS 06/20 04:57 Order name: XRAY CXR (1 view) 4 06/20 14:41 Order name: CT EDMS 06/20 04:57 Order name: Call RT; Complete Time: 05:10 4 06/20 04:57 Order name: EKG; Complete Time: 04:58 sp4 06/20 04:57 Order name: Cardiac monitoring; Complete Time: 05:10 4 06/20 04:57 Order name: EKG - Nurse/Tech; Complete Time: 05:10 4 06/20 04:57 Order name: IV Saline Lock; Complete Time: 04:59 sp4 06/20 04:57 Order name: Labs collected and sent; Complete Time: 04:59 4 06/20 04:57 Order name: O2 Per Protocol; Complete Time: 04:59 4 06/20 04:57 Order name: O2 Sat Monitoring; Complete Time: 04:59 EC:07 Rate is 115 beats/min. Rhythm is irregular, Sinus tachycardia with PACs. QRS [place] is sp4 Normal. AR interval is normal. QRS interval is normal. QT interval is normal. No Q waves. T waves are Normal. No ST changes noted. Clinical impression: No evidence of ischemia. Interpreted by me. Reviewed by me. Administered Medications: 05:36 Drug: Albuterol Inhalation 2.5 mg Inhalation every 20 minutes x3 Route: Inhalation; al5 05:36 Drug: Ipratropium Inhalation Aerosol 0.5 mg Inhalation once; Every 20 min for a total al5 of 3 treatments x3 Route: Inhalation; 05:36 Drug: MethylPrednisoLONE IVP 125 mg IVP once Route: IVP; Site: right forearm; al5 06:36 Follow up: Response: No adverse reaction al5 05:36 Drug: Rocephin - Rocephin (cefTRIAXone) IVPB 1 grams IVPB once over 30 mins; (mix in 50 al5 mL NS) Route: IVPB; Infused Over: 30 mins; Site: right forearm; 06:01 Follow up: Response: No adverse reaction; IV Status: Completed infusion; IV Intake: [id number] 05:45 Not Given (medication unavailablee): dextromethorphan-guaifenesinliquid 10 mg-100 mg/5 al5 ml 10 ml PO once 06:01 Drug: Zithromax IVPB 500 mg IVPB once over 1 hrs; mix in 250 mL NS Route: IVPB; Infused al5 Over: 1 hrs; Site: right forearm; 07:02 Follow up: Response: No adverse reaction; IV Status: Completed infusion; IV Intake: al5 250ml 06:36 Drug: Acetaminophen PO 1000 mg PO once Route: PO; al5 07:48 Follow up: Response: No adverse reaction; Pain is unchanged, physician notified kc6 06:37 Drug: Albuterol Inhalation 2.5 mg Inhalation every 20 minutes x3 Route: Inhalation; al5 06:37 Drug: Albuterol Inhalation 2.5 mg Inhalation every 20 minutes x3 Route: Inhalation; al5 06:37 Drug: Ipratropium Inhalation Aerosol 0.5 mg Inhalation once; Every 20 min for a total al5 of 3 treatments x3 Route: Inhalation; 06:37 Drug: Ipratropium Inhalation Aerosol 0.5 mg Inhalation once; Every 20 min for a total al5 of 3 treatments x3 Route: Inhalation; Disposition Summary: 06/20/24 07:31 Hospitalization Ordered Notes: Hospitalization Status: Inpatient Admission sp4 Provider: Skyler Olivarez sp4 Condition: Stable sp4 Problem: new sp4 Symptoms: have improved sp4 Bed/Room Type: Standard sp4 Location: Telemetry/MedSurg (Inpatient)(06/20/24 14:07) ty Room Assignment: 403(06/20/24 14:07) ty Diagnosis - COPD/ Chronic obstructive pulmonary disease with (acute) exacerbation sp4 Forms: - Medication Reconciliation Form sp4 - SBAR form sp4 - Leadership Thank You Letter sp4 Signatures: Dispatcher [employer] EDMS Adriana Walton RN RN lg3 Deacon Mckinney DO DO ms3 Filomena Garces RN RN vc1 Lucretia Jhaveri, RN RN danni3 Curtis Lara MD MD sp4 Kleber Perez Amanda, RN RN al5 Leigha Rutherford RN kc6 Corrections: (The following items were deleted from the chart) 04:58 04:57 BASIC METABOLIC PANEL+C.LAB.BRZ ordered. EDMS EDMS 04:58 04:57 BLOOD CULTURE*+BA.LAB.BRZ ordered. EDMS EDMS 04:58 04:57 CBC+H.LAB.BRZ ordered. EDMS EDMS 04:58 04:57 CREATINE PHOSPHOKINASE+C.LAB.BRZ ordered. EDMS EDMS 04:58 04:57 D-DIMER+COAG.LAB.BRZ ordered. EDMS EDMS 04:58 04:57 HEPATIC FUNCTION+C.LAB.BRZ ordered. EDMS EDMS 04:58 04:57 LIPASE+C.LAB.BRZ ordered. EDMS EDMS 04:58 04:57 MAGNESIUM+C.LAB.BRZ ordered. EDMS EDMS 04:58 04:57 PROBNP+C.LAB.BRZ ordered. EDMS EDMS 04:58 04:57 PROTIME (+INR)+COAG.LAB.BRZ ordered. EDMS EDMS 04:58 04:57 PTT, ACTIVATED+COAG.LAB.BRZ ordered. EDMS EDMS 04:58 04:57 Troponin High Sensitivity+C.LAB.BRZ ordered. EDMS EDMS 05:14 05:14 LACTATE+C.LAB.BRZ ordered. EDMS EDMS 08:01 07:31 Telemetry/MedSurg (Inpatient) sp4 kb3 08:01 07:31 sp4 kb3 14:07 08:01 [facility] ER HOLD kb3 ty 14:07 08:01 ERHOLD- kb3 ty
--- NOTE | 2024-06-20 07:32 | ER ---
Nurse's Notes [facility] Name: Mar Nuno Age: 73 yrs Sex: Female : 1950 Arrival Date: 06/20/2024 Time: 04:50 Bed 8 Private MD: Diagnosis: COPD/ Chronic obstructive pulmonary disease with (acute) exacerbation Presentation: 06/20 04:52 Chief complaint: Patient states: difficulty breathing for the past couple of days, got al5 worse early this morning. Coronavirus screen: At this time, the client does not indicate any symptoms associated with coronavirus-19. Ebola Screen: No symptoms or risks identified at this time. Initial Sepsis Screen: Does the patient meet any 2 criteria? RR > 20 per min. HR > 90 bpm. Does the patient have a suspected source of infection? No. Patient's initial sepsis screen is negative. Risk Assessment: Do you want to hurt yourself or someone else? Patient reports no desire to harm self or others. Onset of symptoms was June 13, 2024. 04:52 Method Of Arrival: EMS: [facility] al5 04:52 Acuity: [place] 3 al5 04:52 Care prior to arrival: IV initiated. 20 GA, in the right forearm. al5 Triage Assessment: 04:56 General: Appears in no apparent distress. comfortable, Behavior is calm, cooperative. al5 Pain: Denies pain. EENT: No signs and/or symptoms were reported regarding the EENT system. Neuro: Level of Consciousness is awake, alert, obeys commands, Oriented to person, place, time, situation. Cardiovascular: Capillary refill < 3 seconds Patient's skin is warm and dry. Respiratory: Reports shortness of breath Breath sounds with wheezes bilaterally. Onset: The symptoms/episode began/occurred for past week, the patient has moderate shortness of breath. GI: No signs and/or symptoms were reported involving the gastrointestinal system. : No signs and/or symptoms were reported regarding the genitourinary system. Derm: Skin is intact, Skin is pink, warm \T\ dry. normal. Musculoskeletal: No signs and/or symptoms reported regarding the musculoskeletal system. Historical: - Allergies: 04:56 Aspirin; al5 04:56 HISTAMINE H2 INHIBITORS; al5 - PMHx: 04:56 Asthma; COPD; seasonal allergies; al5 - PSHx: 04:56 None; al5 - Immunization history:: Adult Immunizations up to date, Flu vaccine is not up to date. It has been more than one year since last vaccine. - Infectious Disease History:: Denies. - Social history:: Smoking status: Patient denies any tobacco usage or history of. - Family history:: not pertinent. Screenin:58 [facility] ED Fall Risk Assessment (Adult) History of falling in the last 3 months, al5 including since admission No falls in past 3 months (0 pts) Confusion or Disorientation No (0 pts) Intoxicated or Sedated No (0 pts) Impaired Gait No (0 pts) Mobility Assist Device Used No (0 pt) Altered Elimination No (0 pt) Score/Fall Risk Level 0 - 2 = Low Risk Oriented to surroundings, Maintained a safe environment, Hourly rounding (assess needs \T\ fall precautionary measures) done. Abuse screen: Denies threats or abuse. Denies injuries from another. Nutritional screening: No deficits noted. Tuberculosis screening: No symptoms or risk factors identified. Assessment: 04:57 Reassessment: see triage assessment. Cardiovascular: Rhythm is sinus tachycardia. al5 04:59 Respiratory: Airway is patent Respiratory effort is even, unlabored. al5 07:46 General: Appears in no apparent distress. comfortable, well groomed, well developed, kc6 Behavior is calm, cooperative, appropriate for age. Pain: Complains of pain in head Quality of pain is described as dull, throbbing. Neuro: Level of Consciousness is awake, alert, obeys commands, Oriented to person, place, time, situation, Appropriate for age Reports headache frontal area. Cardiovascular: Denies chest pain, Capillary refill < 3 seconds Rhythm is regular. Respiratory: Reports shortness of breath on exertion cough that is productive, persistent Airway is patent Trachea midline Respiratory effort is even, unlabored, Respiratory pattern is regular, symmetrical, Breath sounds with crackles bilaterally. GI: No signs and/or symptoms were reported involving the gastrointestinal system. : No signs and/or symptoms were reported regarding the genitourinary system. EENT: No signs and/or symptoms were reported regarding the EENT system. Derm: No signs and/or symptoms reported regarding the dermatologic system. Skin is intact, is healthy with good turgor, Skin is pink, warm \T\ dry. Musculoskeletal: No signs and/or symptoms reported regarding the musculoskeletal system. Circulation, motion, and sensation intact. Range of motion: intact in all extremities. Vital Signs: 04:52 BP 173 / 91; Pulse 102; Resp 26; Temp 97.5; Pulse Ox 96% on 4 lpm NC; Weight 58.97 kg; al5 Height 5 ft. 3 in. ; 05:15 BP 153 / 87; Pulse 92; Resp 22; Pulse Ox 97% on 3 lpm NC; al5 05:30 BP 135 / 67; Pulse 98; Resp 22; Pulse Ox 97% on 3 lpm NC; al5 06:00 BP 128 / 89; Pulse 90; Resp 21; Pulse Ox 99% on 2 lpm NC; al5 06:30 BP 136 / 81; Pulse 101; Resp 19; Pulse Ox 99% on 10 lpm Nebulizer Mask; al5 04:52 Body Mass Index 23.03 (58.97 kg, 160.02 cm) al5 [place] Coma Score: 07:24 Eye Response: spontaneous(4). Motor Response: obeys commands(6). Verbal Response: sp4 oriented(5). Total: 15. ED Course: 04:51 Patient arrived in ED. al5 04:52 Curtis Lara MD is Attending Physician. sp4 04:55 Inserted saline lock: 20 gauge in right antecubital area, using aseptic technique. vc1 Blood collected. Flushed with 10 mL NS. 04:55 First set of blood cultures drawn by me. vc1 04:56 Triage completed. al5 04:57 Arm band placed on right wrist. Patient placed in the treatment room, in view of staff al5 members, on oxygen, on pulse oximetry. 04:58 Patient has correct armband on for positive identification. Placed in gown. Bed in low al5 position. Call light in reach. Side rails up X2. Provided Education on: plan of care. 04:58 No provider procedures requiring assistance completed. Maintain EMS IV. Dressing al5 intact. Good blood return noted. Site clean \T\ dry. Gauge \T\ site: 20G RFA. Flushed with 10 mL NS. 04:59 Jenni Ortiz RN is Primary Nurse. al5 05:05 Initial lab(s) drawn, by me, sent to lab. Second set of blood cultures drawn by me, EKG vc1 done. 05:13 BMP Sent. vc1 05:13 Blood Culture Adult (2) Sent. vc1 05:13 Lipase Sent. vc1 05:13 Magnesium Sent. vc1 05:13 NT PRO-BNP Sent. vc1 05:13 PT-INR Sent. vc1 05:13 Ptt, Activated Sent. vc1 05:13 Troponin HS Sent. vc1 05:20 XRAY CXR (1 view) In Process Unspecified. EDMS 07:00 Report received from LETICIA Arteaga. grinder setup operator on. Pulse ox on. NIBP on. Door closed. kc6 Noise minimized. Lights dimmed. Warm blanket given. Pillow given. Verbal reassurance given. 07:31 Skyler Olivarez MD is Hospitalizing Provider. sp 07:46 Assisted to bedside commode. Repositioned patient. Linen changed. kc6 08:08 Urine collected: clean catch specimen, cloudy. kc6 08:08 Patient admitted, IV remains in place. kc6 Administered Medications: 05:36 Drug: Albuterol Inhalation 2.5 mg Inhalation every 20 minutes x3 Route: Inhalation; al5 05:36 Drug: Ipratropium Inhalation Aerosol 0.5 mg Inhalation once; Every 20 min for a total al5 of 3 treatments x3 Route: Inhalation; 05:36 Drug: MethylPrednisoLONE IVP 125 mg IVP once Route: IVP; Site: right forearm; al5 06:36 Follow up: Response: No adverse reaction al5 05:36 Drug: Rocephin - Rocephin (cefTRIAXone) IVPB 1 grams IVPB once over 30 mins; (mix in 50 al5 mL NS) Route: IVPB; Infused Over: 30 mins; Site: right forearm; 06:01 Follow up: Response: No adverse reaction; IV Status: Completed infusion; IV Intake: [id number] 05:45 Not Given (medication unavailablee): dextromethorphan-guaifenesinliquid 10 mg-100 mg/5 al5 ml 10 ml PO once 06:01 Drug: Zithromax IVPB 500 mg IVPB once over 1 hrs; mix in 250 mL NS Route: IVPB; Infused al5 Over: 1 hrs; Site: right forearm; 07:02 Follow up: Response: No adverse reaction; IV Status: Completed infusion; IV Intake: al5 250ml 06:36 Drug: Acetaminophen PO 1000 mg PO once Route: PO; al5 07:48 Follow up: Response: No adverse reaction; Pain is unchanged, physician notified kc6 06:37 Drug: Albuterol Inhalation 2.5 mg Inhalation every 20 minutes x3 Route: Inhalation; al5 06:37 Drug: Albuterol Inhalation 2.5 mg Inhalation every 20 minutes x3 Route: Inhalation; al5 06:37 Drug: Ipratropium Inhalation Aerosol 0.5 mg Inhalation once; Every 20 min for a total al5 of 3 treatments x3 Route: Inhalation; 06:37 Drug: Ipratropium Inhalation Aerosol 0.5 mg Inhalation once; Every 20 min for a total al5 of 3 treatments x3 Route: Inhalation; Medication: 04:58 VIS not applicable for this client. al5 Intake: 06:01 IV: 50ml; Total: 50ml. al5 07:02 IV: 250ml; Total: 300ml. al5 Outcome: 07:31 Decision to Hospitalize by Provider. sp4 08:08 Admitted to ER Hold. Please see [facility] for further documentation. kc6 08:08 Condition: stable 08:08 Instructed on the need for admit, 15:34 Patient left the ED. kc6 Signatures: Dispatcher [employer] EDMS Filomena Garces RN RN vc1 Leigha Rutherford RN RN kc6 Curtis Lara MD MD sp4 Jenni Ortiz RN RN al5 Corrections: (The following items were deleted from the chart) 06:38 06:30 BP 136 / 81; Pulse 101bpm; Resp 19bpm; Pulse Ox 99% 02 10lpm Non-rebreather mask; al5 al5
[2024-06-20 07:39] LABS: Arterial Blood Carboxyhemoglob 0.8 % (0-1.5); Blood Gas Oxyhemoglobin 93.4 % (94-97); Blood O2 Saturation 95.9 % (92-98.5)
--- NOTE | 2024-06-20 07:48 | RAD REPORT ---
EXAM: XR Chest, 1 View CLINICAL HISTORY: The patient is 73 years old and is Female; Chest pain. TECHNIQUE: Single view of the chest. COMPARISON: No relevant prior studies available. FINDINGS: Lungs: Mild centrilobular emphysema. No consolidation or fluid overload. Pleural space: Unremarkable. No pneumothorax. Heart: Borderline cardiac enlargement. Mediastinum: Unremarkable. Bones/joints: No acute fracture. Upper abdomen: No free air in the visualized upper abdomen. IMPRESSION: Mild centrilobular emphysema. No consolidation or fluid overload. Electronically signed by: Zaida Aiken MD 06/20/2024 07:10 AM CDT RP V2 Due to temporary technical issues with the PACS/[employer] reporting system, reports are being jeaneth d by the in-house radiologist without review as a courtesy to ensure prompt reporting the interpreting radiologist is fully responsible for the content of the report. Transcribed Date/Time: 06/20/2024 7:48 AM
[2024-06-20 08:23] LABS: Specific Gravity 1.019 (1.005-1.030); Sqamous Epithelial <5 /HPF (None Seen); Urine Bacteria None Seen /HPF (<20); Urine Bilirubin NEGATIVE (Negative); Urine Blood 1+ (Negative); Urine Clarity Turbid (Clear); Urine Color Light-Yellow (Yellow); Urine Culture Reflex Order NOT NEEDED; Urine Glucose NEGATIVE (Negative); Urine Ketones 3+ (Negative); Urine Micro Reflex YN NO BILL MICROSCOPIC; Urine Mucus Slight /HPF (None Seen); Urine Nitrite NEGATIVE (Negative); Urine Protein TRACE (Negative); Urine RBC <5 /HPF (None Seen); Urine Urobilinogen Normal (Normal); Urine WBC <5 /HPF (<5); Urine pH 5.5 (5.0-7.0)
[2024-06-20] MEDS ORDERED: ONDANSETRON 4 MG/2 ML VIAL IV PRN (10:08)
[2024-06-20 10:28] VITALS: BMI 23.0
[2024-06-20] MEDS: PNEUMOCOCCAL VACCINE 0.5 ML IMVAC ONE (11:00)
[2024-06-20] MEDS ORDERED: ACETAMINOPHEN 325 MG TABLET ONE (11:18)
[2024-06-20] MEDS: ACETAMINOPHEN 325 MG TABLET PO PRN (11:29)
--- NOTE | 2024-06-20 12:26 | EKG ---
Test Date: 2024-06-20 Test Time: 05:07:30 Goat Driver: MYNOR MEASUREMENT RESULTS: Intervals: Rate: 115 [place]: QRSD: 68 QT: 332 QTc: 459 [employer]: P: W[place]: QRS: 62 T: 48 INTERPRETIVE STATEMENTS: Atrial fibrillation with rapid ventricular response Abnormal ECG Compared to ECG 11/30/2022 10:06:51 Sinus rhythm no longer present Sinus arrhythmia no longer present Electronically Signed On 06-20-24 12:24:49 CDT by Roosevelt Rendon
--- NOTE | 2024-06-20 13:29 | P.HP ---
Patient History Date of Service: 06/20/24 Reason for admission: DYSPNEA ,COUGH, COPD History of Present Illness: ETHAN IS A COPD PATIENT WITH SEVERE CHRONIC SYMPTOMS, COUGH, DYSPNEA ETC. SHE ALSO HAS MOLD INFESTED HOME AND IN PROCESS TO REPAIR. SHE COMES WITH DYSPNEA, FAILED ON STEROIDS AND ABX A FEW TIMES. Allergies aspirin Allergy (Mild, Verified 08/21/15 22:34) Hives Histamine H2 Inhibitors Allergy (Mild, Verified 08/21/15 22:34) Hives Home Medications: Montelukast Sodium [Singulair] 10 mg PO DAILY 08/21/15 Budesonide/Glycopyr/Formoterol [Breztri Aerosphere Inhaler] 2 aero IN BID 11/30/22 Ensure Enlive 237 ml PO TID can 12/01/22 - Past Medical/Surgical History Has patient received pneumonia vaccine in the past: No Diabetic: No -: Pneumonia -: Asthma -: Hysterectomy - Social History Smoking Status: Never smoker Alcohol use: Yes CD- Drugs: No Caffeine use: Yes Review of Systems 10-point ROS is otherwise unremarkable General: Weakness Respiratory: Shortness of Breath Physical Examination - Vital Signs Temperature: 98.6 F Blood Pressure: 152/98 Pulse: 98 Respirations: 16 Pulse Ox (%): 95 - Physical Exam General: Oriented x3, Cachectic, Moderate distress HEENT: Atraumatic, PERRLA, Mucous membr. moist/pink, EOMI, Sclerae nonicteric Neck: Supple, 2+ carotid pulse no bruit, No LAD, Without JVD or thyroid abnormality Respiratory: Diminished, Crackles/rales, Rhonchi/gurgles Cardiovascular: Regular rate/rhythm, Normal S1 S2 Gastrointestinal: Normal bowel sounds, No tenderness Musculoskeletal: No tenderness Integumentary: No rashes Neurological: Normal gait, Normal speech, Normal strength at 5/5 x4 extr, Normal tone, Normal affect Lymphatics: No axilla or inguinal lymphadenopathy - Studies Laboratory Data (last 24 hrs) 06/20/24 06/20/24 06/20/24 05:05 05:05 05:05 WBC 8.60 Hgb 14.9 Hct 44.0 Plt Count 258 PT 12.2 INR 1.07 APTT 30.1 Sodium 138 Potassium 3.7 BUN 8 Creatinine 0.79 Glucose 99 Magnesium 1.9 Total Bilirubin 0.6 AST 19 ALT 26 Alkaline Phosphatase 83 Lipase 30 Assessment and Plan - Problems (Diagnosis) (1) COPD with acute bronchitis Current Visit: Yes Status: Acute Plan: HYPERCAPNIC RESPIRATORY DEFICIENCY. STEROIDS IV ALB IPR NEB ADD BROVANA NEB CT WITH CONTRAST. PROGNOSIS POOR. - Advance Directives Does patient have a Living Will: No Does patient have a Durable POA for Healthcare: No
[2024-06-20] MEDS: ALBUTEROL 2.5 MG/3 ML NEB SOL NEB SCH (14:24)
--- NOTE | 2024-06-20 14:40 | RAD REPORT ---
EXAMINATION: CTA CHEST AORTA CLINICAL INDICATION: Female, 73 years old [facility] MAIN DYSPNEA TECHNIQUE: This examination was performed according to an angiographic protocol with 3D post-processi ng. This involves 3D reconstructions, MIPs, volume rendered images and/or shaded surface rendering. One or more of the following dose reduction techniques were used: Automated exposure control, adjustm ent of the mA and/or kV according to patient size, and/or iterative reconstruction. Unless otherwise specified, incidental findings do not require dedicated imaging follow-up. [id number]. COMPARISON: 11/30/2022 FINDINGS: LOWER NECK: Subcentimeter right thyroid nodule. No follow-up required. LUNGS AND AIRWAYS: Bronchial wall thickening with areas of mucoid impaction. This has been seen prior ..9 mm left upper lobe pulmonary nodule is similar in size. This was previously cavitary and is presumably benign. PLEURA: No pleural effusion. No pneumothorax. Hemidiaphragms are normally positioned. MEDIASTINUM AND LYMPH NODES: No mediastinal mass or fluid collection. Normal size mediastinal, hilar, and axillary lymph nodes. Diffuse esophageal wall thickening. THORACIC AORTA: No thoracic aortic aneurysm. PULMONARY ARTERIES: Caliber is within normal limits. HEART: Normal heart size. No coronary calcifications.No significant pericardial effusion. OSSEOUS STRUCTURES AND CHEST WALL: Multilevel degenerative changes. No acute fracture. UPPER ABDOMEN: No significant abnormalities. IMPRESSION: Normal caliber and configuration of the thoracic aorta without acute changes. Question mild chronic b ronchitis. No acute findings identified.
[2024-06-20] MEDS: METHYLPREDNISOLONE 40 MG INJ IV SCH (17:15)
[2024-06-20] MEDS: ARFORMOTEROL TARTRATE 15 MCG/2 ML VIAL.NEB NEB SCH (20:21)
[2024-06-20] MEDS: IPRATROPIUM BROM 0.5MG/2.5ML NEB SCH (20:21)
[2024-06-21 06:42] LABS: Anion Gap 9.8 mEq/L (5.0-15.0); Potassium 3.8 mEq/L (3.5-5.1)
[2024-06-21] MEDS: AZITHROMYCIN IV 500 MG in NA CHLORIDE 0.9% 250 ML IVPB SCH (08:22)
[2024-06-21] MEDS: HOME MED 1 EA UNK (Budesonide/Glycopyr/Formoterol [Breztri Aerosphere Inhaler] 10.7 GM Hfa IN SCH (08:23)
[2024-06-21] MEDS: HOME MED 1 EA UNK (Budesonide/Glycopyr/Formoterol [Breztri Aerosphere Inhaler] 10.7 GM Hfa IH SCH (09:00)
[2024-06-21] MEDS: FAMOTIDINE 20 MG TAB PO SCH (09:01)
[2024-06-21 11:01] VITALS: O2SAT 93
[2024-06-21 12:11] VITALS: BP 128/67; TEMP 98
--- NOTE | 2024-06-21 13:08 | P.DS ---
Admission Date: 06/20/24 Discharge Date: 06/21/24 Disposition: ROUTINE DISCHARGE Discharge Condition: FAIR Reason for Admission: DYSPNEA ,COUGH, COPD - Problems (1) COPD with acute bronchitis Current Visit: Yes Status: Acute Brief History of Present Illness: ETHAN IS A COPD PATIENT WITH SEVERE CHRONIC SYMPTOMS, COUGH, DYSPNEA ETC. SHE ALSO HAS MOLD INFESTED HOME AND IN PROCESS TO REPAIR. SHE COMES WITH DYSPNEA, FAILED ON STEROIDS AND ABX A FEW TIMES. Hospital Course: SHE IS A LOT BETTER. SHE HAS COPD FROM SECOND HAND SMOKING. SHE IMPROVED ON STEROIDS AND ZITHROMAX. SHE DOES NOT TOLERATE SHE GETS SHAKY AND TACHYCARDIA. SHE IS GIVEN ALB INHALER AND MEDS ABOVE CALLED INTO PHARMACY. Vital Signs/Physical Exam: Temp Pulse Resp BP Pulse Ox 98.0 F 105 H 17 128/67 95 06/21/24 12:00 06/21/24 12:00 06/21/24 12:00 06/21/24 12:00 06/21/24 12:00 General: Alert, In no apparent distress HEENT: Atraumatic, PERRLA, EOMI Neck: Supple, JVD not distended Respiratory: Diminished Cardiovascular: Regular rate/rhythm, Normal S1 S2 Gastrointestinal: Normal bowel sounds, No tenderness Musculoskeletal: No tenderness Integumentary: No rashes Neurological: Normal speech, Normal tone, Normal affect Lymphatics: No axilla or inguinal lymphadenopathy Laboratory Data at Discharge: WBC 8.60 thou/uL (4.3-10.9) 06/20/24 05:05 Hgb 14.9 g/dL (12.0-15.0) 06/20/24 05:05 Hct 44.0 % (36.0-45.0) 06/20/24 05:05 Plt Count 258 thou/uL (152-406) 06/20/24 05:05 PT 12.2 SECONDS (10-13.0) 06/20/24 05:05 INR 1.07 06/20/24 05:05 APTT 30.1 SECONDS (27.2-37.4) 06/20/24 05:05 Sodium 139 mEq/L (136-145) 06/21/24 05:38 Potassium 3.8 mEq/L (3.5-5.1) 06/21/24 05:38 BUN 12 mg/dL (7-18) 06/21/24 05:38 Creatinine 0.66 mg/dL (0.55-1.02) 06/21/24 05:38 Glucose 151 mg/dL (74-106) H 06/21/24 05:38 Magnesium 1.9 mg/dL (1.6-2.4) 06/20/24 05:05 Total Bilirubin 0.6 mg/dL (0.2-1.0) 06/20/24 05:05 AST 19 U/L (15-37) 06/20/24 05:05 ALT 26 U/L (13-56) 06/20/24 05:05 Alkaline Phosphatase 83 U/L (45-117) 06/20/24 05:05 Lipase 30 U/L (13-75) 06/20/24 05:05 Home Medications: Montelukast Sodium [Singulair] 10 mg PO DAILY 08/21/15 Budesonide/Glycopyr/Formoterol [Breztri Aerosphere Inhaler] 2 puff IN BID 11/30/22 Albuterol Sulfate [Albuterol Sulfate Hfa] 1 puff IH Q4HP PRN 06/20/24 Followup: Skyler Olivarez MD [Primary Care Provider] - 1 Week
== END 2024-06-21 17:07 | disposition home or self-care (01) | DRG 192 ==
LOC: ER 04:50 → ERHOLD 07:32 → 4TH 14:35
PROVIDERS: ADMIT Internal Medicine; ATTEND Internal Medicine
DX: J44.0 Chronic obstructive pulmonary disease with (acute) lower respiratory infection (principal); J20.9 Acute bronchitis, unspecified; J44.1 Chronic obstructive pulmonary disease with (acute) exacerbation; R53.1 Weakness; R06.89 Other abnormalities of breathing; J30.2 Other seasonal allergic rhinitis; Z77.22 Contact with and (suspected) exposure to environmental tobacco smoke (acute) (chronic); Z88.8 Allergy status to other drugs, medicaments and biological substances; Z90.710 Acquired absence of both cervix and uterus
CPT/HCPCS: 36415; 36600; 71045; 71275; 80048; 80076; 81001; 82550; 82805; 82947; 83605; 83690; 83735; 83880; 84484; 85025; 85379; 85610; 85730; 87040; 93005; 94640; 94760; 96365; 96367; 96375; 99285; J0696; J2919; J7050; J7605; J7613; J7644; Q9967

== ENCOUNTER 2024-08-06 08:45 | Inpatient (IN) | payer OTHER ==
--- OUTSIDE RECORDS SUMMARY | 2024-08-06 08:57 | XMS REPORT | Continuity of Care Document ---
Author Name Unknown Address [address] [place] [address] [facility] Address [address] [place] [address] [address] [place] [address] Care Team Providers Care Surgery Attendant Name Role Phone Unavailable Unavailable Unavailable
[2024-08-06 09:38] LABS: Absolute Basophils 0.1 K/uL (0-0.5); Absolute Eosinophils 0.9 K/uL (0-0.5); Absolute Lymphocytes (CBC) 1.6 K/uL (0.7-4.9); Absolute Monocytes 0.6 K/uL (0.1-1.3); Absolute Neutrophil 6.7 K/uL (1.8-8.0); Basophils % 0.7 % (0-1.3); Eosinophils % 9.2 % (0-4.4); Hematocrit 43.9 % (36.0-45.0); Hemoglobin 14.6 g/dL (12.0-15.0); Lymphocytes % 15.7 % (15.3-44.8); MCH 30.8 pg (27.0-35.0); MCHC 33.3 g/dL (32.0-36.0); MCV 92.4 fL (80-100); MPV 8.6 fL (7.6-11.3); Monocytes % 6.5 % (3.3-12.3); Neutrophils % 67.9 % (41.7-73.7); Nucleated Red Blood Cells % 0.1 % (0-0); Platelets 219 thou/uL (152-406); RBC Red Blood Cell Count 4.75 M/uL (3.86-4.86); Red Cell Distribution Width 14.8 % (12.1-15.2)
--- NOTE | 2024-08-06 09:42 | RAD REPORT ---
EXAMINATION: ONE VIEW CHEST XR CLINICAL INDICATION: DYSPNEA TECHNIQUE: Frontal chest projection is submitted. Examination is limited by patient positioning and t echnique. COMPARISON: 06/20/2024 FINDINGS: The lungs are diffusely emphysematous but grossly clear. The heart is moderately enlarged in size. No displaced fractures identified. Aortic atherosclerosis. IMPRESSION: COPD without an acute process suspected.
[2024-08-06 09:43] LABS: PT Prothrombin Time 12.3 SECONDS (10-13.0); PTT, Activated Partial Thromb 29.5 SECONDS (27.2-37.4); Protime INR 1.08
[2024-08-06 09:54] LABS: Albumin 3.9 g/dL (3.4-5.0); Albumin/Globulin Ratio 1.2 (1.1-1.8); Anion Gap 7.4 mEq/L (5.0-15.0); Bilirubin Total 0.7 mg/dL (0.2-1.0); Globulin 3.3 g/dL (2.3-3.5); Potassium 3.4 mEq/L (3.5-5.1); Protein, Total 7.2 g/dL (6.4-8.2)
[2024-08-06 10:10] LABS: SARS-CoV-2 Antigen Rapid Res Negative (Negative)
--- NOTE | 2024-08-06 11:31 | EDPHYS ---
Physician Documentation [facility] Name: Mar Nuno Age: 73 yrs Sex: Female : 1950 Arrival Date: 08/06/2024 Time: 08:45 Bed 7 Private MD: ED Physician Myron Barnett HPI: 08/06 09:40 This 73 yrs old Female presents to ER via Unassigned with complaints of Shortness Of sb4 Breath. 09:40 Patient reports feeling intermittently short of breath and coughing for the past couple sb4 of days. States that she woke up this morning went to the restroom, and started feeling extremely short of breath. States that she used her rescue inhaler twice without any improvement in symptoms so she called EMS. EMS states that she was 77% on room air upon arrival. They administered albuterol and Atrovent nebulizer treatment and gave 125 mg Solu-Medrol. Patient is now 98% on room air upon arrival, states her breathing has improved. Patient has no other complaints at this time. Historical: - Allergies: 10:55 Aspirin; bp 10:55 HISTAMINE H2 INHIBITORS; bp - PMHx: 10:55 Asthma; COPD; seasonal allergies; bp - Immunization history:: Adult Immunizations up to date. - Infectious Disease History:: Denies. - Social history:: Smoking status: unknown. ROS: 09:40 Constitutional: Negative for fever, chills, and weight loss, sb4 09:40 Respiratory: Positive for cough, shortness of breath, 09:40 All other systems are negative, Exam: 09:40 Head/Face: Normocephalic, atraumatic. Eyes: Extra-ocular motions intact. Periorbital sb4 areas with no swelling, redness, or edema. ENT: Mucous membranes moist. Abdomen/GI: Soft, non-tender, no distension. Skin: Warm, dry with normal turgor. Normal color with no rashes, no lesions, and no evidence of cellulitis. 09:40 Constitutional: The patient appears in no acute distress, alert, awake, 09:40 Cardiovascular: Rate: tachycardic, Rhythm: regular, 09:40 Respiratory: the patient does not display signs of respiratory distress, Respirations: normal, Breath sounds: wheezing: expiratory that is moderate, is heard in the right posterior upper lobe, Vital Signs: 08:45 BP 164 / 97; Pulse 108; Resp 20; Temp 98.7; Pulse Ox 94% on R/A; bp 09:29 Pulse Ox 84% on R/A; hb 10:02 Pulse Ox 93% on 4 lpm NC; hb 10:30 BP 140 / 83; Pulse 95; Resp 20; Pulse Ox 100% ; bp 11:50 BP 148 / 86; Pulse 94; Resp 19; Pulse Ox 100% on 3 lpm NC; hb 13:00 BP 151 / 79; Pulse 97; Resp 20; Pulse Ox 100% on 3 lpm NC; bp 15:30 BP 145 / 81; Pulse 102; Resp 20; Pulse Ox 100% on 3 lpm NC; bp MDM: 08:53 Medical Screening Exam initiated sb4 09:42 Differential diagnosis: asthma, Bronchitis Chronic Obstructive Pulmonary Disease sb4 pneumonia. 11:29 Antibiotic administration: Levaquin given. Data reviewed: vital signs, nurses notes, sb4 EMS record, lab test result(s), EKG, radiologic studies, and as a result, I will admit patient. Consideration of Admission/Observation Patient was admitted/placed on observation. Care significantly affected by the following chronic conditions: Chronic Obstructive Pulmonary Disease. Counseling: I had a detailed discussion with the patient and/or guardian regarding the historical points, exam findings, and any diagnostic results supporting the discharge/admit diagnosis, the presence of at least one elevated blood pressure reading (>120/80) during this emergency department visit, lab results, radiology results, the need for further work-up and treatment in the hospital. 11:35 The patient's pulmonary embolism risk score was calculated as follows: the patients sb4 heart rate is greater than 100 beats per minute (1.5 Pts) Total Score: 0-2 points. This patient was found to be at low risk for a pulmonary embolism by using the Well's assessment criteria. 08/06 09:03 Order name: Blood Culture Adult (2) sb4 08/06 09:03 Order name: CBC with Diff; Complete Time: 09:40 sb4 08/06 09:03 Order name: CMP; Complete Time: 09:55 4 08/06 09:03 Order name: Lactate w/ 2H reflex if indic.; Complete Time: 09:58 4 08/06 09:03 Order name: Protime (+inr); Complete Time: 09:43 sb4 08/06 09:03 Order name: Ptt, Activated; Complete Time: 09:43 sb4 08/06 09:03 Order name: COVID-19 Ag + Flu A+B Ag sb4 08/06 09:07 Order name: SARS RAPID; Complete Time: 10:11 sb4 08/06 09:03 Order name: Chest Single View XRAY; Complete Time: 09:43 sb4 08/06 09:03 Order name: Accucheck; Complete Time: 09:22 sb4 08/06 09:03 Order name: Cardiac monitoring; Complete Time: 09:22 sb4 08/06 09:03 Order name: EKG - Nurse/Tech; Complete Time: 09:23 sb4 08/06 09:03 Order name: IV Saline Lock - Large Bore; Complete Time: 09:23 sb4 08/06 09:03 Order name: Labs collected and sent; Complete Time: 09:23 sb4 08/06 09:03 Order name: O2 Per Protocol; Complete Time: 09:23 sb4 08/06 09:03 Order name: O2 Sat Monitoring; Complete Time: 09:23 sb4 08/06 09:03 Order name: Vital Signs; Complete Time: 09:24 sb4 EC:35 Rate is 102 beats/min. Rhythm is regular, Sinus tachycardia. WA interval is normal at sb4 152 msec. QRS interval is normal at 82 msec. QT interval is normal at 368 msec. No Q waves. T waves are Normal. No ST changes noted. Clinical impression: No evidence of ischemia. Interpreted by me. Reviewed by me. Administered Medications: 12:13 Drug: Magnesium Sulfate IVPB 2 grams IVPB once over 1 hrs Route: IVPB; Infused Over: 1 bp hrs; Site: right antecubital; 15:43 Follow up: IV Status: Completed infusion bp 12:13 Drug: DuoNeb Nebulize (3:1) (2.5 mg - 0.5 mg) 3 ml Nebulizer once Route: Nebulizer; bp 15:42 Follow up: Response: No adverse reaction bp 12:13 Drug: Acetaminophen PO 1000 mg PO once Route: PO; bp 15:42 Follow up: Response: No adverse reaction bp 13:04 Drug: levofloxacin IVPB 750 mg 150 ml IVPB once over 90 mins Volume: 150 ml; Route: bp IVPB; Infused Over: 90 mins; Site: right antecubital; 15:43 Follow up: IV Status: Completed infusion bp Disposition: 16:31 Co-signature as Attending Physician, Myron Barnett MD I reviewed the patient's care rn provided by the Advanced Practice Provider and agree with the diagnosis and treatment plan. Disposition Summary: 08/06/24 11:30 Hospitalization Ordered Notes: Hospitalization Status: Inpatient Admission sb4 Provider: Skyler Olivarez sb4 Condition: Fair sb4 Problem: an acute exacerbation sb4 Symptoms: are unchanged sb4 Bed/Room Type: Standard sb4 Location: Telemetry/MedSurg (Inpatient)(08/06/24 13:59) bd Room Assignment: 223(08/06/24 13:59) bd Diagnosis - COPD/ Chronic obstructive pulmonary disease with (acute) exacerbation sb4 - Hypoxemia sb4 Forms: - Medication Reconciliation Form sb4 - SBAR form sb4 - Leadership Thank You Letter sb4 Signatures: Dispatcher [employer] EDMS Yolanda Huynh bd Myron Barnett MD MD rn Peltier, Brian, RN RN bp Brown, Sophia, PA-Aristeo PA-Aristeo sb4 Corrections: (The following items were deleted from the chart) 09:04 09:04 BLOOD CULTURE*+BA.LAB.BRZ ordered. EDMS EDMS 09:04 09:04 CBC+H.LAB.BRZ ordered. EDMS EDMS 09:04 09:04 COMPREHENSIVE METABOLIC PANEL+C.LAB.BRZ ordered. EDMS EDMS 09:04 09:04 LACTATE+C.LAB.BRZ ordered. EDMS EDMS 09:04 09:04 PROTIME (+INR)+COAG.LAB.BRZ ordered. EDMS EDMS 09:04 09:04 PTT, ACTIVATED+COAG.LAB.BRZ ordered. EDMS EDMS 09:04 09:04 COVID-19 Ag + Flu A+B Ag+I.LAB.BRZ ordered. EDMS EDMS 09:04 09:04 Chest Single View+RAD.RAD.BRZ ordered. EDMS EDMS 09:07 09:07 SARS-COV-2 Antigen Rapid+I.LAB.BRZ ordered. EDMS EDMS 13:07 11:30 Telemetry/MedSurg (Inpatient) sb4 bd 13:07 11:30 sb4 bd 13:59 13:07 BR ER HOLD bd bd 13:59 13:07 ERHOLD- bd bd
--- NOTE | 2024-08-06 11:31 | ER ---
Nurse's Notes [facility] Name: Mar Nuno Age: 73 yrs Sex: Female : 1950 Arrival Date: 08/06/2024 Time: 08:45 Bed 7 Private MD: Diagnosis: COPD/ Chronic obstructive pulmonary disease with (acute) exacerbation;Hypoxemia Presentation: 08/06 08:45 Chief complaint: EMS states: SOB SINCE WAKING. Coronavirus screen: At this time, the bp client does not indicate any symptoms associated with coronavirus-19. Ebola Screen: No symptoms or risks identified at this time. Initial Sepsis Screen: Does the patient meet any 2 criteria? No. Patient's initial sepsis screen is negative. Does the patient have a suspected source of infection? No. Patient's initial sepsis screen is negative. Risk Assessment: Do you want to hurt yourself or someone else? Patient reports no desire to harm self or others. Onset of symptoms is unknown. Care prior to arrival: Medication(s) given: Albuterol Neb x 1, Atrovent Neb x 1, SOLU-MEDROL 125MG IV initiated. 20 GA, in the right antecubital area. 08:45 Method Of Arrival: EMS: [facility] bp 08:45 Acuity: [place] 3 bp Triage Assessment: 08:45 General: Appears in no apparent distress. Behavior is cooperative, appropriate for age, bp anxious. Pain:. EENT: No deficits noted. Neuro: No deficits noted. Cardiovascular: Rhythm is sinus tachycardia. Respiratory: Reports shortness of breath Onset: The symptoms/episode began/occurred this morning, the patient has mild shortness of breath. GI: No signs and/or symptoms were reported involving the gastrointestinal system. : No signs and/or symptoms were reported regarding the genitourinary system. Derm: No deficits noted. Musculoskeletal: No signs and/or symptoms reported regarding the musculoskeletal system. Historical: - Allergies: 10:55 Aspirin; bp 10:55 HISTAMINE H2 INHIBITORS; bp - PMHx: 10:55 Asthma; COPD; seasonal allergies; bp - Immunization history:: Adult Immunizations up to date. - Infectious Disease History:: Denies. - Social history:: Smoking status: unknown. Screenin:45 [facility] ED Fall Risk Assessment (Adult) History of falling in the last 3 months, bp including since admission No falls in past 3 months (0 pts) Confusion or Disorientation No (0 pts) Intoxicated or Sedated No (0 pts) Impaired Gait No (0 pts) Mobility Assist Device Used No (0 pt) Altered Elimination No (0 pt) Score/Fall Risk Level 0 - 2 = Low Risk Oriented to surroundings. Abuse screen: Denies threats or abuse. Denies injuries from another. Nutritional screening: No deficits noted. Tuberculosis screening: No symptoms or risk factors identified. Assessment: 08:45 General: Appears in no apparent distress. Behavior is cooperative, appropriate for age, bp anxious. Cardiovascular: Rhythm is sinus tachycardia. Respiratory: Airway is patent Respiratory effort is labored, Breath sounds are diminished. 10:30 Reassessment: Patient appears in no apparent distress at this time. Patient is alert, bp oriented x 3, equal unlabored respirations, skin warm/dry/pink. 11:50 Reassessment: Patient appears in no apparent distress at this time. No changes from hb previously documented assessment. 15:00 Reassessment: REPORT FAXED FOR RM 229. bp Vital Signs: 08:45 BP 164 / 97; Pulse 108; Resp 20; Temp 98.7; Pulse Ox 94% on R/A; bp 09:29 Pulse Ox 84% on R/A; hb 10:02 Pulse Ox 93% on 4 lpm NC; hb 10:30 BP 140 / 83; Pulse 95; Resp 20; Pulse Ox 100% ; bp 11:50 BP 148 / 86; Pulse 94; Resp 19; Pulse Ox 100% on 3 lpm NC; hb 13:00 BP 151 / 79; Pulse 97; Resp 20; Pulse Ox 100% on 3 lpm NC; bp 15:30 BP 145 / 81; Pulse 102; Resp 20; Pulse Ox 100% on 3 lpm NC; bp ED Course: 08:45 Maintain EMS IV. Dressing intact. Good blood return noted. Site clean \T\ dry. Gauge \T\ bp site: 20 RAC. Flushed with 10 mL NS. 08:45 Arm band placed on. bp 08:45 Patient has correct armband on for positive identification. bp 08:51 Patient arrived in ED. bd 08:53 Mikayla Del Toro PA-C is PHCP. sb4 08:53 Myron Barnett MD is Attending Physician. sb4 08:54 Rica, Sean, RN is Primary Nurse. bp 09:00 First set of blood cultures drawn by me. zm 09:15 Second set of blood cultures drawn by me. zm 09:15 Initial lab(s) drawn, by me, sent to lab. zm 09:21 Chest Single View XRAY In Process Unspecified. EDMS 09:21 Maintain EMS IV. Dressing intact. Good blood return noted. Site clean \T\ dry. Gauge \T\ zm site: 20G RAC. Flushed with 10 mL NS. 09:22 SARS RAPID Sent. zm 09:23 Blood Culture Adult (2) Sent. zm 09:23 CBC with Diff Sent. zm 09:23 CMP Sent. zm 09:23 Lactate w/ 2H reflex if indic. Sent. zm 09:23 Protime (+inr) Sent. zm 09:23 Ptt, Activated Sent. zm 09:43 EKG done, by ED staff, reviewed by Mikayla Del Toro PA-C. zm 10:54 Triage completed. bp 11:29 Skyler Olivarez MD is Hospitalizing Provider. sb4 15:30 No provider procedures requiring assistance completed. Patient admitted, IV remains in bp place. 15:30 Provided Education on: NA. bp Administered Medications: 12:13 Drug: Magnesium Sulfate IVPB 2 grams IVPB once over 1 hrs Route: IVPB; Infused Over: 1 bp hrs; Site: right antecubital; 15:43 Follow up: IV Status: Completed infusion bp 12:13 Drug: DuoNeb Nebulize (3:1) (2.5 mg - 0.5 mg) 3 ml Nebulizer once Route: Nebulizer; bp 15:42 Follow up: Response: No adverse reaction bp 12:13 Drug: Acetaminophen PO 1000 mg PO once Route: PO; bp 15:42 Follow up: Response: No adverse reaction bp 13:04 Drug: levofloxacin IVPB 750 mg 150 ml IVPB once over 90 mins Volume: 150 ml; Route: bp IVPB; Infused Over: 90 mins; Site: right antecubital; 15:43 Follow up: IV Status: Completed infusion bp Medication: 15:30 VIS not applicable for this client. bp Outcome: 11:30 Decision to Hospitalize by Provider. sb4 15:30 Admitted to Med/surg accompanied by nurse, via wheelchair, room 229, with oxygen, bp 15:30 Condition: stable 15:30 Instructed on the need for admit, 15:43 Patient left the ED. bp Signatures: Dispatcher [employer] EDMS Yolanda Huynh Heather, LETICIA RN Sean Garcia RN RN Ivana Rabago Sophia, FROYLAN PAElver sb4
[2024-08-06] MEDS ORDERED: ALBUTEROL 2.5 MG/3 ML NEB SOL ONE ×2 (11:44→13:26)
[2024-08-06] MEDS ORDERED: IPRATROPIUM BROM 0.5MG/2.5ML ONE (11:44)
[2024-08-06] MEDS ORDERED: ACETAMINOPHEN 500 MG TAB ONE (11:45)
[2024-08-06] MEDS ORDERED: Magnesium Sulfate 2gm IVPB 2 G/50 ML BAG IV ONE (11:45)
[2024-08-06] MEDS ORDERED: Levofloxacin 750mg IV 750 MG/150 ML BAG IV ONE (11:45)
[2024-08-06] MEDS: METHYLPREDNISOLONE 125 MG INJ IV SCH (12:11)
[2024-08-06] MEDS: IPRATROPIUM BROM 0.5MG/2.5ML NEB SCH (13:00)
[2024-08-06] MEDS: ALBUTEROL 2.5 MG/3 ML NEB SOL NEB SCH (13:00)
[2024-08-06 17:04] VITALS: BMI 23.0
--- NOTE | 2024-08-06 17:32 | P.SSS ---
Patient History Date of Service: 08/06/24 Reason for admission: DYSPNEA History of Present Illness: ETHAN HAS HAD COPD FOR LONG DURATION. SHE IS ALLERGIC TO MOLD ALSO. SHE HAS MOLD INFESTED HOME AND GETS SICK OFTEN. SHE IS WORKING ON ALL TO BE CLEANED. COST IS HIGH. SHE WAS GOOD UNTIL SHE TURNED THE HEATER ON AND GOT SICK AGAIN. COMES BY AMBULANCE FOR DYSPNEA AND HYPOXIA. Allergies aspirin Allergy (Mild, Verified 08/21/15 22:34) Hives Histamine H2 Inhibitors Allergy (Mild, Verified 08/21/15 22:34) Hives Home Medications: Montelukast Sodium [Singulair] 10 mg PO DAILY 08/21/15 Budesonide/Glycopyr/Formoterol [Breztri Aerosphere Inhaler] 2 puff IN BID 11/30/22 Albuterol Sulfate [Albuterol Sulfate Hfa] 1 puff IH Q4HP PRN 06/20/24 - Past Medical/Surgical History Has patient received pneumonia vaccine in the past: No Diabetic: No -: Pneumonia -: Asthma -: COPD -: Hysterectomy -: Cataracts - Social History Smoking Status: Never smoker Alcohol use: Yes CD- Drugs: No Caffeine use: Yes Place of Residence: Home Review of Systems 10-point ROS is otherwise unremarkable General: Weakness Respiratory: Shortness of Breath Physical Examination - Vital Signs Temperature: 97.6 F Blood Pressure: 149/72 Pulse: 108 Respirations: 20 Pulse Ox (%): 93 - Physical Exam General: Cachectic, Mild distress, Moderate distress HEENT: Atraumatic, PERRLA, Mucous membr. moist/pink, EOMI, Sclerae nonicteric Neck: Supple, 2+ carotid pulse no bruit, No LAD, Without JVD or thyroid abnormality Respiratory: Diminished Cardiovascular: Regular rate/rhythm, Normal S1 S2 Gastrointestinal: Normal bowel sounds, No tenderness Musculoskeletal: No tenderness Integumentary: No rashes Neurological: Normal gait, Normal speech, Normal strength at 5/5 x4 extr, Normal tone, Normal affect Lymphatics: No axilla or inguinal lymphadenopathy - Studies Laboratory Data (last 24 hrs) 08/06/24 08/06/24 08/06/24 09:15 09:15 09:15 WBC 9.90 Hgb 14.6 Hct 43.9 Plt Count 219 PT 12.3 INR 1.08 APTT 29.5 Sodium 140 Potassium 3.4 L BUN 7 Creatinine 0.67 Glucose 98 Total Bilirubin 0.7 AST 21 ALT 27 Alkaline Phosphatase 77 - Diagnosis (Problem(s)) (1) COPD with hypoxia Current Visit: Yes Status: Acute Plan: HPI STEROIDS NEBS MAY GO HOME IN AM IF STABLE. (2) Acute respiratory failure Current Visit: Yes Status: Acute Plan: LOT STABLE WITH STEROIDS AND NEBS. - Disposition Disposition: ROUTINE DISCHARGE
[2024-08-07] MEDS: POTASSIUM CL SA 10 MEQ TAB PO ONE ×2 (06:52→07:08)
[2024-08-07] MEDS: POTASSIUM CL SA 10 MEQ TAB PO SCH (07:06)
[2024-08-07] MEDS: predniSONE 20 MG TAB PO SCH (09:43)
[2024-08-07] MEDS: AZITHROMYCIN 250 MG TAB PO SCH (09:43)
[2024-08-07] MEDS: MONTELUKAST 10 MG TAB PO SCH (09:43)
[2024-08-07 09:55] VITALS: O2SAT 96
--- NOTE | 2024-08-07 12:18 | P.CNS ---
Date of Consult: 08/07/24 Reason for Consult: Asthma exacerbation Chief Complaint: DYSPNEA History of Present Illness: Patient is 73 years of age with a history of obstructive airways disease has never smoked has had recurrent frequent exacerbation for many years triggered by indoor mold and poor pollen she became sick over the past 1 day she has had intermittent steroids before uses Breztri at home feeling better Allergies aspirin Allergy (Mild, Verified 08/21/15 22:34) Hives Histamine H2 Inhibitors Allergy (Mild, Verified 08/21/15 22:34) Hives Home Medications: Montelukast Sodium [Singulair] 10 mg PO DAILY 08/21/15 Budesonide/Glycopyr/Formoterol [Breztri Aerosphere Inhaler] 2 puff IN BID 11/30/22 Albuterol Sulfate [Albuterol Sulfate Hfa] 1 puff IH Q4HP PRN 06/20/24 - Past Medical/Surgical History Diabetic: No -: Pneumonia -: Asthma -: COPD -: Hysterectomy -: Cataracts - Social History Smoking Status: Unknown if ever smoked Alcohol use: Yes CD- Drugs: No Caffeine use: Yes Place of Residence: Home Review of Systems 10-point ROS is otherwise unremarkable General: Weakness Respiratory: Cough, Shortness of Breath Physical Examination Temp Pulse Resp BP Pulse Ox 98.0 F 104 H 22 H 131/72 95 08/07/24 08:00 08/07/24 08:00 08/07/24 08:00 08/07/24 08:00 08/07/24 08:00 General: Alert, Oriented x3 Neck: Supple Respiratory: Clear to auscultation bilaterally, Diminished Cardiovascular: No edema, Regular rate/rhythm Gastrointestinal: Normal bowel sounds, Soft and benign - Problems (1) Asthma exacerbation Current Visit: Yes Status: Acute Plan: Patient has poorly considered controlled obstructive airways disease most likely asthma she has never smoked has multiple lateral allergies to pollen currently patient is undergoing desensitization at home for mold patient is compliant with Breztri eosinophil count is 9% she is has intermittent use of steroids will benefit from outpatient evaluation of respiratory meanwhile discharged home on prednisone 10 mg once or twice a day as needed in addition to azithromycin to 50 mg daily vital signs oxygenation stable chest x-ray shows COPD changes IgE levels also ordered Qualifiers: Asthma severity: severe Asthma persistence: persistent Qualified Code(s): J45.51 - Severe persistent asthma with (acute) exacerbation
[2024-08-07 12:38] VITALS: BP 127/68; TEMP 97.8
--- NOTE | 2024-08-07 13:03 | P.DS ---
Admission Date: 08/06/24 Discharge Date: 08/07/24 Disposition: ROUTINE DISCHARGE Reason for Admission: DYSPNEA - Problems (1) COPD with hypoxia Current Visit: Yes Status: Acute (2) Acute respiratory failure Current Visit: Yes Status: Acute Brief History of Present Illness: ETHAN HAS HAD COPD FOR LONG DURATION. SHE IS ALLERGIC TO MOLD ALSO. SHE HAS MOLD INFESTED HOME AND GETS SICK OFTEN. SHE IS WORKING ON ALL TO BE CLEANED. COST IS HIGH. SHE WAS GOOD UNTIL SHE TURNED THE HEATER ON AND GOT SICK AGAIN. COMES BY AMBULANCE FOR DYSPNEA AND HYPOXIA. Hospital Course: ETHAN HAS RECURRENT LUNG INFECTIONS AND INFLAMMATION. SHE HAS MOLD IN THE HOUSE AND HAS HAD MANY CATS IN THE HOUSE. EOSINOPHILS ARE MILD HIGH. WILL GIVE IV THERAPY FOR THIS. SHE IS STABLE TO GO HOME AFTER IV STEROIDS, NEBS AND FU WITH DR. BROWN. Vital Signs/Physical Exam: Temp Pulse Resp BP Pulse Ox 97.8 F 108 H 20 127/68 93 08/07/24 12:00 08/07/24 12:00 08/07/24 12:00 08/07/24 12:00 08/07/24 12:00 Laboratory Data at Discharge: WBC 9.90 thou/uL (4.3-10.9) 08/06/24 09:15 Hgb 14.6 g/dL (12.0-15.0) 08/06/24 09:15 Hct 43.9 % (36.0-45.0) 08/06/24 09:15 Plt Count 219 thou/uL (152-406) 08/06/24 09:15 PT 12.3 SECONDS (10-13.0) 08/06/24 09:15 INR 1.08 08/06/24 09:15 APTT 29.5 SECONDS (27.2-37.4) 08/06/24 09:15 Sodium 140 mEq/L (136-145) 08/06/24 09:15 Potassium 3.4 mEq/L (3.5-5.1) L 08/06/24 09:15 BUN 7 mg/dL (7-18) 08/06/24 09:15 Creatinine 0.67 mg/dL (0.55-1.02) 08/06/24 09:15 Glucose 98 mg/dL (74-106) 08/06/24 09:15 Total Bilirubin 0.7 mg/dL (0.2-1.0) 08/06/24 09:15 AST 21 U/L (15-37) 08/06/24 09:15 ALT 27 U/L (13-56) 08/06/24 09:15 Alkaline Phosphatase 77 U/L (45-117) 08/06/24 09:15 Home Medications: Montelukast Sodium [Singulair] 10 mg PO DAILY 08/21/15 Budesonide/Glycopyr/Formoterol [Breztri Aerosphere Inhaler] 2 puff IN BID 11/30/22 Albuterol Sulfate [Albuterol Sulfate Hfa] 1 puff IH Q4HP PRN 06/20/24 predniSONE [Deltasone*] 10 mg PO DAILY #30 tab 08/07/24 New Medications: predniSONE [Deltasone*] 10 mg PO DAILY #30 tab Followup: Skyler Olivarez MD [Primary Care Provider] - 1-2 Weeks
--- NOTE | 2024-08-09 11:55 | EKG ---
Test Date: 2024-08-06 Test Time: 09:25:29 Form Designer: BP MEASUREMENT RESULTS: Intervals: Rate: 102 ND: 152 QRSD: 82 QT: 368 QTc: 479 Cashion: P: 73 ND: 152 QRS: 64 T: 55 INTERPRETIVE STATEMENTS: Sinus tachycardia Otherwise normal ECG Compared to ECG 06/20/2024 05:07:30 Atrial fibrillation no longer present Electronically Signed On 08-09-24 11:47:55 CDT by Roosevelt Rendon
== END 2024-08-07 14:49 | disposition home or self-care (01) | DRG 193 ==
LOC: ER 08:45 → ERHOLD 11:48 → 2ND 14:58
PROVIDERS: ADMIT Internal Medicine; ATTEND Internal Medicine
DX: J18.9 Pneumonia, unspecified organism (principal); J96.01 Acute respiratory failure with hypoxia; J45.51 Severe persistent asthma with (acute) exacerbation; J44.1 Chronic obstructive pulmonary disease with (acute) exacerbation; J44.0 Chronic obstructive pulmonary disease with (acute) lower respiratory infection; Z88.6 Allergy status to analgesic agent; Z11.52 Encounter for screening for COVID-19; Z91.09 Other allergy status, other than to drugs and biological substances; Z79.899 Other long term (current) drug therapy; Z90.710 Acquired absence of both cervix and uterus
CPT/HCPCS: 36415; 71045; 80053; 82785; 83605; 85025; 85610; 85730; 87040; 87426; 93005; 94640; 96365; 96366; 99285; G0378; J2919; J3475; J7512; J7613; J7644